=== PATIENT | male | born 1955 | race African-American/Black ===

== ENCOUNTER 2018-03-02 16:09 | Emergency (ER) | payer SELFPAY ==
[~2018-03-02] VITALS: Ht 185.4 cm; Wt 93.0 kg
[2018-03-02 16:20] VITALS: BP 137/77
[2018-03-02 17:34] LABS: HEMATOCRIT 37.7 % (42.0-52.0); HEMOGLOBIN 10.9 G/DL (14.2-18.0); MEAN CORPUSCULAR VOLUME 62 FL (80-99); PLATELET COUNT 515 K/UL (150-450); RED BLOOD COUNT 6.05 M/UL (4.70-6.10); RED CELL DISTRIBUTION WIDTH 17.4 % (11.6-14.8); WHITE BLOOD COUNT 10.4 K/UL (4.8-10.8)
[2018-03-02 17:50] LABS: ANION GAP 12 mmol/L (5-15); BLOOD UREA NITROGEN 19 mg/dL (7-18); CALCIUM 9.8 MG/DL (8.5-10.1); CARBON DIOXIDE 24 MMOL/L (21-32); CHLORIDE 104 MMOL/L (98-107); CREATININE 1.2 MG/DL (0.55-1.30); POTASSIUM 4.1 MMOL/L (3.5-5.1); SODIUM 140 MMOL/L (136-145)
[2018-03-02 17:55] LABS: ALANINE AMINOTRANSFERASE 36 U/L (12-78); ALBUMIN 3.2 G/DL (3.4-5.0); ALBUMIN/GLOBULIN RATIO 0.6 (1.0-2.7); ALKALINE PHOSPHATASE 109 U/L (46-116); ASPARTATE AMINO TRANSFERASE 23 U/L (15-37); BILIRUBIN,TOTAL 0.6 MG/DL (0.2-1.0)
[2018-03-02] MEDS ORDERED: DICYCLOMINE HCL10 MG PO (18:48)
[2018-03-02] MEDS ORDERED: ONDANSETRON ODT4 MG BC (18:48)
[2018-03-02] MEDS ORDERED: RANITIDINE HCL150 MG ORAL (18:48)
[2018-03-02 18:54] VITALS: BP 137/77
--- NOTE | 2018-03-02 20:15 | Emergency Room Report ---
History of Present Illness General Chief Complaint: Gastrointestinal Illness Source: Patient Present Illness HPI 63-year-old male presents ED for evaluation. States for the last few days he's been having epigastric pain with vomiting and diarrhea. Started after he ate some questionable food. Pain is burning, 6 out of 10, epigastric, nonradiating. Denies chest pain or shortness of breath. Notes multiple episodes of vomiting and diarrhea. Denies recent antibiotic use. Denies recent travel. No other aggravating relieving factors. Denies any other associated symptoms Allergies: Coded Allergies: No Known Allergies (Unverified , 03/02/18) Patient History Past Medical History: none Past Surgical History: none Pertinent Family History: none Social History: Denies: smoking, alcohol use, drug use Immunizations: UTD Reviewed Nursing Documentation: PMH: Agreed; PSxH: Agreed Nursing Documentation-PMH Past Medical History: No Stated History Review of Systems All Other Systems: negative except mentioned in HPI Physical Exam Vital Signs Date Time Temp Pulse Resp B/P (MAP) Pulse Ox O2 Delivery O2 Flow Rate FiO2 03/02/18 16:16 97.7 110 22 137/77 99 Room Air Sp02 EP Interpretation: reviewed, normal General Appearance: no apparent distress, alert, GCS 15, non-toxic Head: normocephalic, atraumatic Eyes: bilateral eye normal inspection, bilateral eye PERRL ENT: hearing grossly normal, normal pharynx, no angioedema, normal voice Neck: full range of motion, supple/symm/no masses Respiratory: chest non-tender, lungs clear, normal breath sounds, speaking full sentences Cardiovascular #1: regular rate, rhythm, no edema Cardiovascular #2: 2+ carotid (R), 2+ carotid (L), 2+ radial (R), 2+ radial (L) , 2+ dorsalis pedis (R), 2+ dorsalis pedis (L) Gastrointestinal: normal bowel sounds, non tender, soft, non-distended, no guarding, no rebound Rectal: deferred Genitourinary: normal inspection, no CVA tenderness Musculoskeletal: back normal, gait/station normal, normal range of motion, non- tender Neurologic: alert, oriented x3, responsive, motor strength/tone normal, sensory intact, speech normal Psychiatric: judgement/insight normal, memory normal, mood/affect normal, no suicidal/homicidal ideation Reflexes: 3+ bicep (R), 3+ bicep (L), 3+ tricep (R), 3+ tricep (L), 3+ knee (R) , 3+ knee (L) Skin: normal color, no rash, warm/dry, well hydrated Lymphatic: no adenopathy Medical Decision Making Diagnostic Impression: Primary Impression: Gastroenteritis ER Course Hospital Course 63 yo M presents to ED c/o vomiting, diarrhea differential diagnosis: gastritis, SBO, cholecystits, gastroenteritis Clinical course Patient placed on stretcher. On secured entrance monitor. After initial history and physical I ordered labs, IV fluids, Zofran and pepcid Labs - no leukocytosis, electyrolytes ok, LFTs normal Upon reassessment, patient states pain has improved. findings consistent with gastroenteritis Discussed findings with patient. Safe for discharge and close outpatient follow -up. We'll prescribe bentyl, Zofran, Zantac. I feel this is a highly complex case requiring extensive working including EKG/ Rhythm strip, Xray/CT/US, Blood/urine lab work, repeat exams while in ED, and administration of strong opiates/narcotics for pain control, admission to hospital or close patient follow up. Diagnosis - gastroenteritis Stable and discharged to home with prescriptions for Zantac, zofran, bentyl. Followup with PMD. Return to ED if symptoms recur or worsen Labs Test 03/02/18 17:08 White Blood Count 10.4 K/UL (4.8-10.8) Red Blood Count 6.05 M/UL (4.70-6.10) Hemoglobin 10.9 G/DL (14.2-18.0) Hematocrit 37.7 % (42.0-52.0) Mean Corpuscular Volume 62 FL (80-99) Mean Corpuscular Hemoglobin 17.9 PG (27.0-31.0) Mean Corpuscular Hemoglobin Concent 28.8 G/DL (32.0-36.0) Red Cell Distribution Width 17.4 % (11.6-14.8) Platelet Count 515 K/UL (150-450) Mean Platelet Volume 6.0 FL (6.5-10.1) Neutrophils (%) (Auto) % (45.0-75.0) Lymphocytes (%) (Auto) % (20.0-45.0) Monocytes (%) (Auto) % (1.0-10.0) Eosinophils (%) (Auto) % (0.0-3.0) Basophils (%) (Auto) % (0.0-2.0) Differential Total Cells Counted 100 Neutrophils % (Manual) 77 % (45-75) Lymphocytes % (Manual) 19 % (20-45) Monocytes % (Manual) 4 % (1-10) Eosinophils % (Manual) 0 % (0-3) Basophils % (Manual) 0 % (0-2) Band Neutrophils 0 % (0-8) Platelet Estimate Increased Platelet Morphology Normal Hypochromasia 3+ Anisocytosis 2+ Microcytosis 3+ Ovalocytes 1+ Sodium Level 140 MMOL/L (136-145) Potassium Level 4.1 MMOL/L (3.5-5.1) Chloride Level 104 MMOL/L (98-107) Carbon Dioxide Level 24 MMOL/L (21-32) Anion Gap 12 mmol/L (5-15) Blood Urea Nitrogen 19 mg/dL (7-18) Creatinine 1.2 MG/DL (0.55-1.30) Estimat Glomerular Filtration Rate > 60 mL/min (>60) Glucose Level 93 MG/DL (74-106) Calcium Level 9.8 MG/DL (8.5-10.1) Total Bilirubin 0.6 MG/DL (0.2-1.0) Aspartate Amino Transf (AST/SGOT) 23 U/L (15-37) Alanine Aminotransferase (ALT/SGPT) 36 U/L (12-78) Alkaline Phosphatase 109 U/L (46-116) Total Protein 8.8 G/DL (6.4-8.2) Albumin 3.2 G/DL (3.4-5.0) Globulin 5.6 g/dL Albumin/Globulin Ratio 0.6 (1.0-2.7) Lipase 85 U/L (73-393) Last Vital Signs Date Time Temp Pulse Resp B/P (MAP) Pulse Ox O2 Delivery O2 Flow Rate FiO2 03/02/18 18:54 97.7 76 22 137/77 99 Room Air Status: improved Disposition: HOME, SELF-CARE Condition: Stable Scripts Dicyclomine Hcl* (DICYCLOMINE HCL*) 10 Mg Capsule 10 MG PO QID for 5 Days, CAP Prov: Greg Ferguson MD 03/02/18 Ondansetron Odt* (ZOFRAN ODT*) 4 Mg Tab.rapdis 4 MG BC EVERY 6 HOURS PRN for Nausea & Vomiting, #10 TAB 0 Refills Prov: Greg Ferguson MD 03/02/18 Ranitidine Hcl* (ZANTAC*) 150 Mg Tablet 150 MG ORAL TWICE A DAY, #30 TAB Prov: Greg Ferguson MD 03/02/18 Departure Forms: Return to Work Return to Work Date: Mar 03, 2018 Work Restrictions: None Patient Instructions: Viral Gastroenteritis, Adult, [id number] Greg Ferguson MD Mar 02, 2018 20:14
== END 2018-03-02 18:55 | disposition home or self-care (01) ==
LOC: EMR 18:20
DX: K52.9 Noninfective gastroenteritis and colitis, unspecified (principal)
CPT/HCPCS: 36415; 80053; 83690; 85007; 85025; 96361; 96374; 96375; 99284; J2405; S0028

== ENCOUNTER 2018-06-04 09:47 | Emergency (ER) | payer MEDICAID ==
[~2018-06-04] VITALS: Ht 185.4 cm; Wt 90.3 kg
[~2018-06-04 09:47] MED LIST: DICYCLOMINE HCL10 MG PO; ONDANSETRON ODT4 MG BC; RANITIDINE HCL150 MG ORAL
[2018-06-04] MEDS ORDERED: UNOBMED (10:00)
[2018-06-04 10:03] VITALS: BP 116/35
--- NOTE | 2018-06-04 10:03 | NUR ---
ED Nurse Note: AMBULATED IN TO ER DUE TO ABNORMAL LAB- H&H OF 5.[address] MCCATRY. PT DENIES SOB, DIZZINESS NOR FATIGUE. PT RECENTLY GOT COLOSTOMY SURGERY 2-3MONTHS AGO AFTER DIAGNOSED OF COLON CANCER. PT HAS PORTAL CATH FOR CHEMOTHERPY WHICH WAS SUPPOSE TO BE GIVEN TODAY.
[2018-06-04 10:27] LABS: HEMATOCRIT 22.7 % (42.0-52.0); HEMOGLOBIN 6.3 G/DL (14.2-18.0); MEAN CORPUSCULAR VOLUME 53 FL (80-99); PLATELET COUNT 431 K/UL (150-450); RED BLOOD COUNT 4.29 M/UL (4.70-6.10); RED CELL DISTRIBUTION WIDTH 17.1 % (11.6-14.8); WHITE BLOOD COUNT 7.4 K/UL (4.8-10.8)
--- NOTE | 2018-06-04 10:28 | Emergency Room Report ---
History of Present Illness General Chief Complaint: General Complaint Source: Patient Present Illness HPI 63yo M with h/o colon ca s/p colectomy and colostomy placement, awaiting chemo regimen scheduled to begin tomorrow, sent by Dr. Dennis for transfusion, hgb 5.4 on outpatient labs. Patient denies symptoms of anemia, denies melena or bloody stools, abd pain, n/v. Allergies: Coded Allergies: No Known Allergies (Unverified , 03/02/18) Patient History Past Medical History: see triage record Reviewed Nursing Documentation: PMH: Agreed; PSxH: Agreed Nursing Documentation-PMH Past Medical History: No History, Except For Hx Cancer: Yes - colon CA Review of Systems All Other Systems: negative except mentioned in HPI Physical Exam Vital Signs Date Time Temp Pulse Resp B/P (MAP) Pulse Ox O2 Delivery O2 Flow Rate FiO2 06/04/18 09:54 98.2 76 14 134/68 97 Room Air Sp02 EP Interpretation: reviewed, normal General Appearance: no apparent distress, alert, non-toxic Head: normocephalic Eyes: bilateral eye normal inspection, bilateral eye PERRL, bilateral eye EOMI , bilateral eye conjunctivae pale ENT: normal ENT inspection, hearing grossly normal, normal pharynx, no angioedema, normal voice, moist mucus membranes Neck: normal inspection, full range of motion, supple, supple/symm/no masses Respiratory: chest non-tender, lungs clear, normal breath sounds, chest symmetrical, palpation of chest normal Cardiovascular #1: normal peripheral pulses, regular rate, rhythm, other - R chest port site C/D/I Cardiovascular #2: 2+ radial (R), 2+ radial (L) Gastrointestinal: normal inspection, non tender, soft, no mass, no guarding, no rebound, other - L sided colostomy bag and site C/D/I Rectal: deferred Genitourinary: normal inspection, no CVA tenderness Musculoskeletal: back normal, gait/station normal, normal range of motion, non- tender, no calf tenderness Neurologic: alert, responsive, truss assembler III-XII nml as tested, motor strength/tone normal, sensory intact, speech normal Psychiatric: judgement/insight normal, memory normal, mood/affect normal Skin: normal color, no rash, warm/dry, normal turgor Lymphatic: no adenopathy Medical Decision Making Diagnostic Impression: Primary Impression: Anemia ER Course Patient agreed to receive a blood transfusion, understanding the risks of HIV, hepatitis C, and transfusion incompatibility mismatch, versus the benefits of receiving blood products in the setting of significant low hemoglobin count. Patient will be transferred to Dr. Tran at [facility] ([facility] after receiving his first unit of PRBCs, remains stable. This is his first ever episode of significant anemia so he will need a workup. Rhythm Strip Diag. Results Rhythm Strip Time: 10:28 EP Interpretation: yes Rate: 66 Rhythm: NSR, no PVC's, no ectopy Last Vital Signs Date Time Temp Pulse Resp B/P (MAP) Pulse Ox O2 Delivery O2 Flow Rate FiO2 06/04/18 10:03 75 14 Room Air 06/04/18 10:03 98.2 116/35 100 Disposition: XFER SHT-TRM HOSP Condition: Stable LEIF OLIVO M.D Jun 04, 2018 10:28
--- NOTE | 2018-06-04 10:35 | NUR ---
ED Nurse Note: RISK FACTORS ARE EXPLAINED TO PT BY DR. OLIVO, PT VERBALIZED UNDERSTANDING. BLOOD TRANSFUSION CONSENT OBTAINED.
[2018-06-04 10:37] LABS: ANION GAP 8 mmol/L (5-15); BLOOD UREA NITROGEN 9 mg/dL (7-18); CALCIUM 8.7 MG/DL (8.5-10.1); CARBON DIOXIDE 27 MMOL/L (21-32); CHLORIDE 105 MMOL/L (98-107); CREATININE 1.1 MG/DL (0.55-1.30); POTASSIUM 3.9 MMOL/L (3.5-5.1); SODIUM 140 MMOL/L (136-145)
[2018-06-04 10:40] LABS: ALANINE AMINOTRANSFERASE 21 U/L (12-78); ALBUMIN 3.1 G/DL (3.4-5.0); ALBUMIN/GLOBULIN RATIO 0.7 (1.0-2.7); ALKALINE PHOSPHATASE 101 U/L (46-116); ASPARTATE AMINO TRANSFERASE 17 U/L (15-37); BILIRUBIN,TOTAL 0.3 MG/DL (0.2-1.0)
--- NOTE | 2018-06-04 11:55 | NUR ---
ED Nurse Note: 1U PRBC OBTAINED FROM LAB. WITNESSED BY KAREN HERNANDEZ. VSS. Dwaine/OX4. EDUCATED PT REGARDING S/S OF TRANSFUSION REACTION, PT VERBALIZED UNDERSTANDING. WILL MONITOR FOR THE S/S OF ADVERSE TRANSFUSION REACTION.
[2018-06-04 12:00] VITALS: BP 126/69
--- NOTE | 2018-06-04 12:09 | NUR ---
ED Nurse Note: NO S/S OF ADVERSE TRANSFUSION REACTION OBSERVED. VSS. WILL CONTINUE TO MONITOR.
[2018-06-04 14:00] VITALS: BP 123/67
--- NOTE | 2018-06-04 15:51 | NUR ---
ED Nurse Note: 1 U OF PRBC IS FINISEHD. NO ADVERSE TRANSFUSION REACTION NOTED. SECOND BAG WILL BE CONTINUE ONCE PT TRANSFER TO [facility].
[2018-06-04 15:52] VITALS: BP 120/67
--- NOTE | 2018-06-04 18:29 | NUR ---
TRANSFER TO FLOOR: Patient transferred to [facility][id number] via [facility]. Report given to KAREN Turner. Belongings given to pt. Family and or S/O informed of transfer. VSS. Pt remains stable. Addendum: 06/04/18 at 1832 by [email or web address] OUTSIDE TRANSFER: Patient transferred to [id number] via [facility]. Report given to KAREN Turner. Belongings given to pt. Family and or S/O informed of transfer. VSS. Pt remains stable.
[2018-06-04 18:32] VITALS: BP 130/86
[2018-06-04 18:33] VITALS: BP 130/86
== END 2018-06-04 18:34 | disposition short-term general hospital (02) ==
LOC: EMR 10:40
DX: D64.9 Anemia, unspecified (principal); Z85.038 Personal history of other malignant neoplasm of large intestine; Z90.49 Acquired absence of other specified parts of digestive tract; Z93.3 Colostomy status
CPT/HCPCS: 36415; 80053; 85007; 85025; 85610; 85730; 86850; 86900; 86901; 86920; 96360; 96361; 99285; P9016

== ENCOUNTER 2018-06-07 10:49 | Emergency (ER) | payer MEDICAID ==
[~2018-06-07] VITALS: Ht 185.4 cm; Wt 88.5 kg
[~2018-06-07 10:49] MED LIST changes: +UNOBMED
--- NOTE | 2018-06-07 11:02 | NUR ---
ED Nurse Note: Patient walked into ED c/o a "beeping sound on his pump" patient does have an IV infusion that is located on his right upper chest, states that it is for his cancer, The MD's office wanted patient to come to the ED to have his line flushed and to also put a new dressing. patient is alert and oriented x4, ambulatory with a steady gait, VSS
[2018-06-07 11:07] VITALS: BP 140/82
--- NOTE | 2018-06-07 12:37 | Emergency Room Report ---
History of Present Illness General Chief Complaint: General Complaint Source: Patient Present Illness HPI Patient is 63-year-old male with a history of cancer, on chemotherapy infusion by a port on the anterior chest wall. He finished his infusion this morning. He is requesting to unhook the infusion pump. He has no pain. He has no other complaints. He states he did not want to wait for tomorrow to go to the infusion center and would rather have us dislodge the infusion pump. Allergies: Coded Allergies: No Known Allergies (Unverified , 03/02/18) Patient History Past Medical History: see triage record Pertinent Family History: none Nursing Documentation-PMH Past Medical History: No History, Except For Hx Cancer: Yes - colon CA Review of Systems All Other Systems: negative except mentioned in HPI Physical Exam Vital Signs Date Time Temp Pulse Resp B/P (MAP) Pulse Ox O2 Delivery O2 Flow Rate FiO2 06/07/18 10:56 97.9 89 18 140/82 100 Room Air General Appearance: well appearing, no apparent distress ENT: hearing grossly normal, normal voice Respiratory: no respiratory distress, speaking full sentences Gastrointestinal: normal inspection Skin: other - there is a portacath on the anterior chest wall on the right Medical Decision Making Diagnostic Impression: Primary Impression: Port-A-Cath in place ER Course patient did have the pump removed from the Port-A-Cat and to follow-up with his infusion center at the oncology clinic. Last Vital Signs Date Time Temp Pulse Resp B/P (MAP) Pulse Ox O2 Delivery O2 Flow Rate FiO2 06/07/18 11:07 97.9 72 18 140/82 100 Room Air Disposition: HOME, SELF-CARE Condition: Stable Referrals: [facility]ERR[facility] (PCP) Patient Instructions: Chemotherapy EVERARDO VAUGHN Jun 07, 2018 12:36
[2018-06-07 13:00] VITALS: BP 137/79
--- NOTE | 2018-06-07 13:00 | NUR ---
ER DISCHARGE NOTE: Patient is cleared to be discharged per ERMD, pt is aox4, on room air, with stable vital signs. pt was given dc and prescription instructions, pt was able to verbalize understanding, pt id band removed. pt is able to ambulate with steady gait. pt took all belongings. successfully pulled out patient's port with no complications.
== END 2018-06-07 13:00 | disposition home or self-care (01) ==
LOC: EMR 12:10
DX: Z45.2 Encounter for adjustment and management of vascular access device (principal); C18.9 Malignant neoplasm of colon, unspecified
CPT/HCPCS: 99282

== ENCOUNTER 2019-09-07 17:37 | Emergency (ER) | payer MEDICAID ==
[~2019-09-07] VITALS: Ht 185.4 cm; Wt 85.7 kg
--- NOTE | 2019-09-07 17:48 | NUR ---
ED Nurse Note: Pt ambulated to ED from home d/t RT shoulder pain with 10/10 scale with complains of shortness of breath x 5 days. Pt reports that he has Colon CA and has been going on for chemotherapy. Pt is AOx4, calm and cooperative, arrived with port-a-cath on upper RT chest and colostomy bag on LT lower abdomen. Pt was placed on bed and gown; hooked to materials assistant satting at 100% on RA. Will continue to monitor.
--- NOTE | 2019-09-07 17:50 | NUR ---
ED Nurse Note: Pt ambulated to ED from home d/t RT shoulder pain with 10/10 sfape PT walked in to ED for C/O pain to right shoulder with difficulty to breathe x5 days. Pt is also on chemo for colon CA pt reports feeling nauseous. Addendum: 09/07/19 at 1829 by VIVIANA Amendment undone in EDM - 09/07/19 at 1833 by VIVIANA ED Nurse Note: Pt ambulated to ED from home d/t RT shoulder pain with 10/10 scale with complains of shortness of breath x 5 days. Pt reports that he has chemo CA and has been going for chemotherapy. Pt is AOx4, calm and cooperative, arrived with port-a-cath on upper RT chest and colostomy bag on LT lower abdomen. Pt was placed on bed and gown; hooked to groundwater monitoring technician satting at 100% on RA. Will continue to monitor.
[2019-09-07 18:00] VITALS: BP 151/95
[2019-09-07] MEDS ORDERED: Omnipaque 350 100ml vial INJ PRN ×2 (18:00→18:15)
[2019-09-07] MEDS ORDERED: Ketorolac 30mg Inj IM ONE (18:15)
--- NOTE | 2019-09-07 18:15 | NUR ---
ED Nurse Note: blood with cultures, covid swab collected, sent to labs.
[2019-09-07 18:31] LABS: BASOPHILS % (AUTO) 1.8 % (0.0-2.0); EOSINOPHILS % (AUTO) 4.9 % (0.0-3.0); HEMATOCRIT 43.2 % (42.0-52.0); HEMOGLOBIN 13.3 G/DL (14.2-18.0); LYMPHOCYTES % (AUTO) 28.8 % (20.0-45.0); MEAN CORPUSCULAR VOLUME 88 FL (80-99); MONOCYTES % (AUTO) 3.5 % (1.0-10.0); PLATELET COUNT 151 K/UL (150-450); RED BLOOD COUNT 4.91 M/UL (4.70-6.10); RED CELL DISTRIBUTION WIDTH 16.7 % (11.6-14.8); WHITE BLOOD COUNT 4.2 K/UL (4.8-10.8)
[2019-09-07 18:36] LABS: ANION GAP 12 mmol/L (5-15); BLOOD UREA NITROGEN 13 mg/dL (7-18); CALCIUM 6.3 MG/DL (8.5-10.1); CARBON DIOXIDE 20 MMOL/L (21-32); CHLORIDE 112 MMOL/L (98-107); CREATININE 0.9 MG/DL (0.55-1.30); POTASSIUM 3.1 MMOL/L (3.5-5.1); SODIUM 144 MMOL/L (136-145)
[2019-09-07 18:47] LABS: ALANINE AMINOTRANSFERASE 25 U/L (12-78); ALBUMIN 2.7 G/DL (3.4-5.0); ALKALINE PHOSPHATASE 79 U/L (46-116); ASPARTATE AMINO TRANSFERASE 29 U/L (15-37); BILIRUBIN,TOTAL 0.7 MG/DL (0.2-1.0)
--- NOTE | 2019-09-07 18:49 | Emergency Room Report ---
History of Present Illness General Chief Complaint: General Complaint Source: Patient (Florentino Mcclellan) Present Illness HPI 65-year-old male with history of stage IV colon cancer currently under chemotherapy with last chemotherapy done last here complaining of 3 days of shortness of breath, right-sided chest and shoulder pain at the port site. Also complains of few days of nonbloody diarrhea, denies any generalized abdominal pain, nausea vomiting, cough or congestion, fever and chills. Vital signs are within normal limits. Sitting comfortably with stable vital signs. Rates the pain 10 out of 10. Reports that he lives at home with family. Denies pleuritic chest pain at this time. (Florentino Mcclellan) Allergies: Coded Allergies: No Known Allergies (Unverified , 03/02/18) COVID-19 Screening Contact w/high risk pt: No Recent Travel to affected area: No Experienced COVID-19 symptoms?: Yes COVID-19 symptoms experienced: Shortness of Breath COVID-19 Testing performed RAILROAD SWITCHMAN: No (Florentino Mcclellan) Patient History Past Medical History: see triage record Past Surgical History: none Pertinent Family History: none Immunizations: UTD Reviewed Nursing Documentation: PMH: Agreed; PSxH: Agreed (Florentino Mcclellan) Nursing Documentation-PMH Past Medical History: No History, Except For Hx Cancer: Yes - colon CA (Florentino Mcclellan) Review of Systems All Other Systems: negative except mentioned in HPI (Florentino Mcclellan) Physical Exam Vital Signs Date Time Temp Pulse Resp B/P (MAP) Pulse Ox O2 Delivery O2 Flow Rate FiO2 09/07/19 17:40 97.9 74 16 151/95 (113) 98 Room Air Sp02 EP Interpretation: reviewed, normal General Appearance: no apparent distress, alert, GCS 15, non-toxic Head: normocephalic, atraumatic Eyes: bilateral eye normal inspection, bilateral eye PERRL ENT: hearing grossly normal, normal pharynx, no angioedema, normal voice Neck: full range of motion, supple/symm/no masses Respiratory: chest non-tender, lungs clear, normal breath sounds, no rhonchi, no wheezing, speaking full sentences Cardiovascular #1: regular rate, rhythm, no edema, no murmur Cardiovascular #2: 2+ dorsalis pedis (R), 2+ dorsalis pedis (L) Gastrointestinal: normal bowel sounds, non tender, soft, non-distended, no guarding, no rebound Rectal: deferred Genitourinary: no CVA tenderness Musculoskeletal: back normal, no calf tenderness, other - No drainage noted at port site. Neurologic: alert, motor strength/tone normal, oriented x3, sensory intact, responsive, speech normal Psychiatric: normal inspection, judgement/insight normal Skin: no rash Lymphatic: no adenopathy (Florentino Mcclellan) Medical Decision Making PA Attestation Diagnosis and treatment plans were reviewed and discussed with my supervising physician Dr. Gordillo (Florentino Mcclellan) Diagnostic Impression: Primary Impression: SOB (shortness of breath) Additional Impressions: Fatigue Qualified Codes: R53.83 - Other fatigue Muscle strain ER Course 65-year-old male with history of stage IV colon cancer currently under chemotherapy with last chemotherapy done last here complaining of 3 days of shortness of breath, right-sided chest and shoulder pain at the port site. Also complains of few days of nonbloody diarrhea, denies any generalized abdominal pain, nausea vomiting, cough or congestion, fever and chills. Vital signs are within normal limits. Sitting comfortably with stable vital signs. Rates the pain 10 out of 10. Reports that he lives at home with family. Denies pleuritic chest pain at this time. Ddx considered but are not limited to: PE, [place], Angina, COPD, GERD, Vital signs: are WNL, pt. is afebrile H&PE are most consistent with chest pain ORDERS: Sepsis and chest pain order set, CTA chest with contrast, COVID-19 swab ED INTERVENTIONS: Toradol, morphine, Zofran, NS bolus I signed out the patient to Dr. Gordillo at 7 PM (Florentino Mcclellan) ER Course 64-year-old male presents with shortness of breath, right shoulder pain differential diagnosis includes ACS, pulmonary embolism, chemotherapy related fatigue. Patient most likely with a right shoulder strain. Patient most likely with chemotherapy related fatigue, labs unremarkable, CT scan shows a left kidney that is currently dilated however his renal function is completely normal, counseled patient to follow-up with his primary doctor Dr. Dennis to follow-up renal function, a copy of the CD was given as well as the read. Disposition home with return precautions follow-up with PCP Laboratory Tests Test 09/07/19 18:13 White Blood Count 4.2 K/UL (4.8-10.8) L Red Blood Count 4.91 M/UL (4.70-6.10) Hemoglobin 13.3 G/DL (14.2-18.0) L Hematocrit 43.2 % (42.0-52.0) Mean Corpuscular Volume 88 FL (80-99) Mean Corpuscular Hemoglobin 27.2 PG (27.0-31.0) Mean Corpuscular Hemoglobin Concent 30.9 G/DL (32.0-36.0) L Red Cell Distribution Width 16.7 % (11.6-14.8) H Platelet Count 151 K/UL (150-450) Mean Platelet Volume 8.5 FL (6.5-10.1) Neutrophils (%) (Auto) 61.0 % (45.0-75.0) Lymphocytes (%) (Auto) 28.8 % (20.0-45.0) Monocytes (%) (Auto) 3.5 % (1.0-10.0) Eosinophils (%) (Auto) 4.9 % (0.0-3.0) H Basophils (%) (Auto) 1.8 % (0.0-2.0) Prothrombin Time 10.6 SEC (9.30-11.50) Prothrombin Time INR 1.0 (0.9-1.1) Activated Partial Thromboplast Time 27 SEC (23-33) Sodium Level 144 MMOL/L (136-145) Potassium Level 3.1 MMOL/L (3.5-5.1) L Chloride Level 112 MMOL/L (98-107) H Carbon Dioxide Level 20 MMOL/L (21-32) L Anion Gap 12 mmol/L (5-15) Blood Urea Nitrogen 13 mg/dL (7-18) Creatinine 0.9 MG/DL (0.55-1.30) Estimated Glomerular Filtration Rate > 60 mL/min (>60) Glucose Level 80 MG/DL (74-106) Lactic Acid Level 0.70 mmol/L (0.4-2.0) Calcium Level 6.3 MG/DL (8.5-10.1) L Total Bilirubin 0.7 MG/DL (0.2-1.0) Aspartate Amino Transferase (AST) 29 U/L (15-37) Alanine Aminotransferase (ALT) 25 U/L (12-78) Alkaline Phosphatase 79 U/L (46-116) Troponin I 0.000 ng/mL (0.000-0.056) Pro-B-Type Natriuretic Peptide 7 pg/mL (0-125) Total Protein 5.5 G/DL (6.4-8.2) L Albumin 2.7 G/DL (3.4-5.0) L Globulin 2.8 g/dL Albumin/Globulin Ratio 1.0 (1.0-2.7) (Addy Gordillo MD) EKG Diagnostic Results Rate: normal Rhythm: NSR ST Segments: no acute changes Other Impression No acute ST changes (Florentino Mcclellan) Chest X-Ray Diagnostic Results Chest X-Ray Diagnostic Results : Chest X-Ray Ordered: Yes # of Views/Limited/Complete: 1 View Indication: Chest Pain EP Interpretation: Yes PA Xray: Interpretation reviewed, by supervising MD, and agrees with findings. Interpretation: no consolidation, no effusion, no pneumothorax Impression: No acute disease Electronically Signed by: Florentino Adamson PA-C (Florentino Mcclellan) CT/MRI/US Diagnostic Results CT/MRI/US Diagnostic Results : Impression Final Report EXAM: CT Angiography Chest With Intravenous Contrast CLINICAL HISTORY: PE TECHNIQUE: Axial computed tomographic angiography images of the chest with intravenous contrast. CTDI is 48 mGy and DLP is 236 mGy-cm. One or more of the following dose reduction techniques were used: automated exposure control, adjustment of the mA and/or kV according to patient size, use of iterative reconstruction technique. MIP reconstructed images were created and reviewed. Coronal and sagittal reformatted images were created and reviewed. Axial reformatted images were created and reviewed. COMPARISON: No relevant prior studies available. FINDINGS: Limitations: Evaluation of the study limited due to lack of comparison studies. Pulmonary arteries: No pulmonary embolism. Aorta: No acute findings. No thoracic aortic aneurysm. Lungs: Numerous bilateral lobulated pulmonary nodules concerning for metastatic pulmonary disease, largest in the right upper lobe measuring 2.6 x 1.6 cm. Pleural space: Unremarkable. No significant effusion. No pneumothorax. Heart: Unremarkable. No cardiomegaly. No significant pericardial effusion. No evidence of RV dysfunction. Bones/joints: No acute intrathoracic process identified to account for patient presentation. No dislocation. Soft tissues: Unremarkable. Lymph nodes: Right hilar metastatic 2.9 x 1.6 cm node and right infrahilar metastatic 3.2 x 1.5 cm lymph node. Spleen: Ill-defined splenic 4.47 m likely metastatic lesion. Multiple hepatic likely metastatic masses largest measuring 2.5 cm in the right hepatic lobe limited in evaluation due to phase of contrast enhancement. Kidneys and ureters: Severely atrophic right kidney. Left renal enlargement with partially seen possible collecting system dilatation versus parapelvic cysts, correlate with prior imaging studies and laboratory evaluation as obstructive process cannot be definitively excluded and in a patient with a solitary functional left kidney this could put the patient at risk for acute renal failure. Tubes, lines and devices: Right IJ approach infusion port. Other findings: Upper left abdominal stoma. IMPRESSION: 1. No pulmonary embolism. 2. No acute intrathoracic process identified to account for patient presentation. 3. Solitary functional enlarged left kidney with partially imaged possible collecting system dilatation potentially representing nonvisualized obstruction versus parapelvic cysts, correlate with laboratory evaluation and prior studies as obstructive uropathy process could put this patient in acute renal failure. Consider renal ultrasound or CT abdomen and pelvis with IV contrast if there is further concern. 4. Metastatic disease to the lungs, right hilar nodes, liver, and spleen as above. No comparison study available to evaluate for interval change. Reported history of colon cancer. 5. Right IJ approach infusion port. 6. Upper left abdominal stoma. Radiologist: Adelfo Vargas MD Electronically Signed: 09/07/19 19:27 Study ready at 19:14 and initial results transmitted at 19:27 Communications: Clear Time Type Notes 09/07/19 19:19 Call Doctor Regarding Other, called Dr. Noonan (Addy Gordillo MD) Last Vital Signs Date Time Temp Pulse Resp B/P (MAP) Pulse Ox O2 Delivery O2 Flow Rate FiO2 09/07/19 18:00 97.9 87 16 151/95 98 Room Air (Florentino Mcclellan) Disposition: HOME, SELF-CARE Condition: Stable Scripts Lidocaine Patch* (Lidoderm Patch*) 1 Each Adh..patch 1 PATCH TOPIC DAILY, #7 PATCH 0 Refills Patch(es) may remain in place for up to 12 hours in any 24-hour period. Prov: Addy Gordillo MD 09/07/19 Ibuprofen* (MOTRIN*) 600 Mg Tablet 600 MG ORAL Q8H PRN for FOR PAIN, #30 TAB 0 Refills Prov: Addy Gordillo MD 09/07/19 Referrals: [facility],REFERRING (PCP) Patient Instructions: Shoulder Pain, [id number] Additional Instructions: The patient was provided with discharge instructions, notified to follow-up with a primary care doctor and or specialist in the next 24-48 hours, and to return to the ED if they have worsening of their symptoms. Please note that this report is being documented using Blackfoot technology. This can lead to erroneous entry secondary to incorrect interpretation by the dictating instrument. Please follow-up with Dr. Dennis in regards to follow-up your renal function, you have a solitary functioning left kidney it is currently dilated however your renal function is completely normal at this time. Florentino Mcclellan September 07, 2019 18:49 Addy Gordillo MD September 07, 2019 19:33
--- NOTE | 2019-09-07 18:54 | NUR ---
ED Nurse Note: pt went to CT via wheelchair accompanied by tech.
[2019-09-07] MEDS ORDERED: HYDROmorphone 1mg/ml Carpuject IVP ONE (19:00)
--- NOTE | 2019-09-07 19:20 | NUR ---
ED Nurse Note: Pt returned from CT in stable condition. All medications administered, pt tolerated well no ss of distress noted. VSS will continue to monitor.
--- NOTE | 2019-09-07 19:28 | Diagnostic Imaging Report ---
EXAM: CT Angiography Chest With Intravenous Contrast CLINICAL HISTORY: PE TECHNIQUE: Axial computed tomographic angiography images of the chest with intravenous contrast. CTDI is 48 mGy and DLP is 236 mGy-cm. One or more of the following dose reduction techniques were used: automated exposure control, adjustment of the mA and/or kV according to patient size, use of iterative reconstruction technique. MIP reconstructed images were created and reviewed. Coronal and sagittal reformatted images were created and reviewed. Axial reformatted images were created and reviewed. COMPARISON: No relevant prior studies available. FINDINGS: Limitations: Evaluation of the study limited due to lack of comparison studies. Pulmonary arteries: No pulmonary embolism. Aorta: No acute findings. No thoracic aortic aneurysm. Lungs: Numerous bilateral lobulated pulmonary nodules concerning for metastatic pulmonary disease, largest in the right upper lobe measuring 2. 6 x 1.6 cm. Pleural space: Unremarkable. No significant effusion. No pneumothorax. Heart: Unremarkable. No cardiomegaly. No significant pericardial effusion. No evidence of RV dysfunction. Bones/joints: No acute intrathoracic process identified to account for patient presentation. No dislocation. Soft tissues: Unremarkable. Lymph nodes: Right hilar metastatic 2.9 x 1.6 cm node and right infrahilar metastatic 3.2 x 1.5 cm lymph node. Spleen: Ill-defined splenic 4.47 m likely metastatic lesion. Multiple hepatic likely metastatic masses largest measuring 2.5 cm in the right hepatic lobe limited in evaluation due to phase of contrast enhancement. Kidneys and ureters: Severely atrophic right kidney. Left renal enlargement with partially seen possible collecting system dilatation versus parapelvic cysts, correlate with prior imaging studies and laboratory evaluation as obstructive process cannot be definitively excluded and in a patient with a solitary functional left kidney this could put the patient at risk for acute renal failure. Tubes, lines and devices: Right IJ approach infusion port. Other findings: Upper left abdominal stoma. IMPRESSION: 1. No pulmonary embolism. 2. No acute intrathoracic process identified to account for patient presentation. 3. Solitary functional enlarged left kidney with partially imaged possible collecting system dilatation potentially representing nonvisualized obstruction versus parapelvic cysts, correlate with laboratory evaluation and prior studies as obstructive uropathy process could put this patient in acute renal failure. Consider renal ultrasound or CT abdomen and pelvis with IV contrast if there is further concern. 4. Metastatic disease to the lungs, right hilar nodes, liver, and spleen as above. No comparison study available to evaluate for interval change. Reported history of colon cancer. 5. Right IJ approach infusion port. 6. Upper left abdominal stoma. <MYCVCSECTION> Communications: 09/07/19 19:19 Call Doctor Regarding Other, called Dr. Noonan
[2019-09-07] MEDS ORDERED: LIDODERM700 M1 TOPIC (19:33)
[2019-09-07] MEDS ORDERED: IBUPROFEN600 M1 ORAL (19:33)
--- NOTE | 2019-09-07 19:45 | NUR ---
ED Nurse Note: ERMD at bedside
[2019-09-07 19:54] VITALS: BP 125/81
--- NOTE | 2019-09-07 19:54 | NUR ---
ER DISCHARGE NOTE: Patient is cleared to be discharged home per ERMD, pt is aox4, 100% on room air, with stable vital signs. pt was given dc and prescription instructions, pt was able to verbalize understanding, pt id band and iv site removed without complications. pt is able to ambulate with steady gait. pt took all belongings.
--- NOTE | 2019-09-08 14:34 | Diagnostic Imaging Report ---
Indication: Chest pain and shortness of breath Technique: One view of the chest Comparison: none Findings: Nodule or opacities are seen at the left lung base and the right perihilar region. There is suggestion of right hilar mass or adenopathy. There is also questionably a vague right midlung opacity. There is a right chest port catheter in place. The heart size is normal. No infiltrates. Linear atelectasis is seen at the right lung base. Impression: Negative for infiltrate Bilateral nodular opacities and right hilar mass. Given the presence of a port catheter, suspect on the basis of metastatic disease. Correlate with clinical history and findings.
== END 2019-09-07 19:54 | disposition home or self-care (01) ==
LOC: EMR 17:52
DX: R06.02 Shortness of breath (principal); R53.83 Other fatigue; T14.8XXA Other injury of unspecified body region, initial encounter; X58.XXXA Exposure to other specified factors, initial encounter; Y92.9 Unspecified place or not applicable; Z85.038 Personal history of other malignant neoplasm of large intestine; R19.7 Diarrhea, unspecified; R07.9 Chest pain, unspecified; M25.511 Pain in right shoulder
CPT/HCPCS: 36415; 71045; 71275; 80053; 83605; 83880; 84484; 85025; 85610; 85730; 87040; 87635; 93005; 96361; 96372; 96374; 96375; J1170; J1885; J2405; J7030; Q9967; Z7502; 99284; J8499

== ENCOUNTER 2019-12-24 06:22 | Emergency (ER) | payer MEDICAID ==
[~2019-12-24] VITALS: Ht 185.4 cm; Wt 87.1 kg
[~2019-12-24 06:22] MED LIST changes: +IBUPROFEN600 M1 ORAL; +LIDODERM700 M1 TOPIC
[2019-12-24 06:30] VITALS: BP 157/93
[2019-12-24] MEDS ORDERED: Morphine Sulfate 2mg/ml Inj(IV/IM USE ONLY) IM ONE (06:45)
--- NOTE | 2019-12-24 06:52 | Emergency Room Report ---
History of Present Illness General Chief Complaint: Pain Source: Patient Present Illness HPI Patient is a 64-year-old male presents for increased right-sided shoulder pain. Reports having prior history of metastatic cancer. Had previous chemotherapy. CT imaging 2 months ago showed metastases to his liver as well as lymph nodes in his chest. Denies any vomiting or abdominal pain. Denies any change in pain with movement. Pain is worsened by position. Denies any recent bleeding. Allergies: Coded Allergies: No Known Allergies (Unverified , 03/02/18) COVID-19 Screening Contact w/high risk pt: No Recent Travel to affected area: No Experienced COVID-19 symptoms?: No COVID-19 symptoms experienced: Shortness of Breath COVID-19 Testing performed PROFESSOR OF PATHOLOGY: No Patient History Past Medical History: see triage record Reviewed Nursing Documentation: PMH: Agreed; PSxH: Agreed Nursing Documentation-PMH Past Medical History: No History, Except For Hx Hypertension: Yes Hx Cancer: Yes - colon CA Review of Systems All Other Systems: negative except mentioned in HPI Physical Exam Vital Signs Date Time Temp Pulse Resp B/P (MAP) Pulse Ox O2 Delivery O2 Flow Rate FiO2 12/24/19 06:28 98.1 57 22 165/103 (123) 95 Room Air Sp02 EP Interpretation: reviewed, normal General Appearance: normal inspection, well appearing, no apparent distress, alert, GCS 15, Chronically Ill Head: atraumatic ENT: normal ENT inspection, hearing grossly normal, normal voice Neck: normal inspection, full range of motion, supple, no bony tend Respiratory: normal inspection, lungs clear, normal breath sounds, no respiratory distress, no retraction, no wheezing Cardiovascular #1: regular rate, rhythm, no edema Gastrointestinal: normal inspection, normal bowel sounds, non tender, soft, no guarding, no hernia Genitourinary: no CVA tenderness Musculoskeletal: normal inspection, back normal, normal range of motion Neurologic: alert, motor strength/tone normal, yeast supervisor III-XII nml as tested, responsive, speech normal, normal inspection Psychiatric: normal inspection, judgement/insight normal, mood/affect normal Skin: no rash Medical Decision Making Diagnostic Impression: Primary Impression: Lung metastases ER Course Patient presented for right-sided shoulder pain. Differential diagnosis include was not limited to bursitis, cancer pain, metastases, among others. Patient has known history of metastatic cancer. There is also some tumor noted to the posterior right thorax on previous CT imaging. Near the pleural border. Metastatic disease to the lungs right hilar nodes and spleen were noted in the past. Patient appears to have had previous visit for similar type pain.'s appears to be cancer related. Patient was given morphine for pain.Patient declined CT imaging imaging studies as well as laboratory testing and states he had recent labs done with his physician. Patient was given pain medications. Patient's pain appears to be related to metastatic cancer and so patient was given narcotic pain medications in the emergency department. He was given prescription for further medications for pain and advised to follow-up with his oncologist for further attempts at pain control. He declined chest x-ray and hospitalization. The patient is advised to follow up with primary care doctor in 1-2 days. Patient is advised to return if any worsening condition or if any changes in status that are concerning. This report is dictated with [employer] skid machine operator software which may occasionally lead to discrepancies related to use of this software. Last Vital Signs Date Time Temp Pulse Resp B/P (MAP) Pulse Ox O2 Delivery O2 Flow Rate FiO2 12/24/19 06:28 98.1 57 22 165/103 (123) 95 Room Air Status: improved Disposition: HOME, SELF-CARE Condition: Stable Scripts Hydrocodone Bit/Acetaminophen 10-325* (NORCO 10-325*) 1 Each Tablet 1 TAB ORAL Q6H PRN for For Pain, #10 TAB 0 Refills PRN PAIN Prov: Jose Jackson MD 12/24/19 Referrals: [facility]/,REFERRING (PCP) Jose Jackson MD Dec 24, 2019 06:52
[2019-12-24] MEDS ORDERED: NORCO 10-325 T1 EACH ORAL (07:01)
[2019-12-24 07:07] VITALS: BP 144/89
[2019-12-24 08:00] VITALS: BP 144/89
== END 2019-12-24 08:00 | disposition home or self-care (01) ==
LOC: EMR 06:37
DX: C78.01 Secondary malignant neoplasm of right lung (principal); I10 Essential (primary) hypertension; Z85.038 Personal history of other malignant neoplasm of large intestine
CPT/HCPCS: 96372; J2270; Z7502; 99283

== ENCOUNTER 2020-04-27 17:07 | Inpatient (IN) | payer MEDICAID ==
[~2020-04-27] VITALS: Ht 185.4 cm; Wt 86.2 kg
[~2020-04-27 17:07] MED LIST changes: +NORCO 10-325 T1 EACH ORAL; +TRAMADOL HCL50 MG ORAL; +TYLENOL325 MG ORAL
[2020-04-27 17:15] VITALS: BP 137/86
--- NOTE | 2020-04-27 17:15 | NUR ---
ED Nurse Note: Pt walked in to ED from home c/o abnormal labs (low hgb 6.6). Pt was sent by his PCP. Pt also c/o body pain and fatigue. Has hx of colon ca and anemia. Presented with portacath on right upper chest and a colostomy bag. Placed on monitor car operator. ERMD at bedside.
[2020-04-27] MEDS ORDERED: Omnipaque-300 100ml vial INJ PRN ×2 (18:00→19:45)
[2020-04-27] MEDS ORDERED: Morphine Sulfate 4mg/ml Inj (IV USE ONLY) IVP ONE ×2 (18:00→19:15)
--- NOTE | 2020-04-27 18:00 | NUR ---
ED Nurse Note: Blood, urine and covid swab sent to lab.
[2020-04-27 18:22] LABS: HEMATOCRIT 23.8 % (42.0-52.0); MEAN CORPUSCULAR VOLUME 70 FL (80-99); PLATELET COUNT 319 K/UL (150-450); RED BLOOD COUNT 3.42 M/UL (4.70-6.10); RED CELL DISTRIBUTION WIDTH 21.3 % (11.6-14.8); WHITE BLOOD COUNT 9.9 K/UL (4.8-10.8)
[2020-04-27 18:24] LABS: HEMOGLOBIN 6.8 G/DL (14.2-18.0)
[2020-04-27 18:33] LABS: ANION GAP 11 mmol/L (5-15); BLOOD UREA NITROGEN 17 mg/dL (7-18); CALCIUM 9.2 MG/DL (8.5-10.1); CARBON DIOXIDE 23 MMOL/L (21-32); CHLORIDE 105 MMOL/L (98-107); CREATININE 1.3 MG/DL (0.55-1.30); SODIUM 138 MMOL/L (136-145)
--- NOTE | 2020-04-27 18:37 | Emergency Room Report ---
History of Present Illness General Chief Complaint: Abnormal Labs Source: Patient Present Illness HPI 65-year-old male history of colostomy history of colon cancer, presents with anemia fatigue x2 weeks, patient noticed some black stools in his colostomy bag, no chest pain no shortness of breath, no known aggravating relieving factors severity is moderate, constant patient presents for evaluation and treatment Allergies: Coded Allergies: No Known Allergies (Unverified , 03/02/18) COVID-19 Screening Contact w/high risk pt: No Recent Travel to affected area: No Experienced COVID-19 symptoms?: No COVID-19 symptoms experienced: Shortness of Breath COVID-19 Testing performed 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 COVID-19 Screening: Negative COVID-19 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 Patient History Past Medical History: see triage record Reviewed Nursing Documentation: PMH: Agreed; PSxH: Agreed Nursing Documentation-PMH Past Medical History: No History, Except For Hx Hypertension: Yes - anemia Hx Cancer: Yes - colon CA Review of Systems All Other Systems: negative except mentioned in HPI Physical Exam Vital Signs Date Time Temp Pulse Resp B/P (MAP) Pulse Ox O2 Delivery O2 Flow Rate FiO2 04/27/20 17:13 98.1 99 18 137/86 (103) 95 Room Air Sp02 EP Interpretation: reviewed, normal General Appearance: well appearing, no apparent distress, alert Head: normocephalic, atraumatic Eyes: bilateral eye PERRL, bilateral eye EOMI, bilateral eye conjunctivae pale ENT: uvula midline, moist mucus membranes Neck: supple, thyroid normal, supple/symm/no masses Respiratory: lungs clear, no respiratory distress, no retraction, no accessory muscle use Cardiovascular #1: normal peripheral pulses, regular rate, rhythm, no edema, no gallop, no murmur Gastrointestinal: non tender, soft, no guarding, no rebound Musculoskeletal: normal inspection Neurologic: alert, oriented x3 Psychiatric: mood/affect normal Skin: no rash, warm/dry Procedures Critical Care Time Critical Care Time Given the critical condition in which the patient arrived, the patient was immediately assessed by myself and the nurse, and cardiac monitoring initiated due to the potential for rapid decompensation of the patient's clinical condition. During the course of the patient's stay, I spent a considerable amount of time at the bedside performing serial re-evaluations of the patient's hemodynamic and clinical status because of the recognized potential threat to life or limb in this condition. I then had a chance to review not only all of the available current laboratory and radiographic studies obtained today, but I also reviewed old records available to me at the time. Additionally, any ancillary information available including carbonation tester records were reviewed. Sequential vital signs were obtained. Critical Care time of 31 minutes was performed exclusive of billable procedures. With symptomatic anemia patient is at risk of high-output failure if he does not have his hemoglobin addressed expeditiously, patient will be transfused 1 unit Medical Decision Making Diagnostic Impression: Primary Impression: Symptomatic anemia ER Course 65-year-old male history of metastatic colon cancer presents with symptomatic anemia Patient given blood Plan for admission to [facility] under Dr. Borges CT/MRI/US Diagnostic Results CT/MRI/US Diagnostic Results : Impression Procedure: CT Chest w Contrast EXAM: CT Chest With Intravenous Contrast CLINICAL HISTORY: Right shoulder pain. History of colon cancer. Evaluate for lung mass. TECHNIQUE: Axial computed tomography images of the chest with intravenous contrast. CTDI is 7.0 mGy and DLP is 314.7 mGy-cm. One or more of the following dose reduction techniques were used: automated exposure control, adjustment of the mA and/or kV according to patient size, use of iterative reconstruction technique. COMPARISON: 09/07/2019. FINDINGS: Lungs: Evaluation of the pulmonary parenchyma reveals extensive and diffuse metastatic disease to the lungs. Airway is patent. Pleural space: Unremarkable. No pneumothorax. No significant effusion. Heart: Heart is normal in size. No significant pericardial effusion. Thyroid: Thyroid gland is unremarkable. Bones/joints: The clavicles are unremarkable. Visualized right shoulder joint is unremarkable. The ribs are likewise unremarkable. Alignment of the thoracic spine is unremarkable. The sternum is unremarkable. No acute fracture. Soft tissues: Unremarkable. Vasculature: Thoracic aorta is unremarkable. Central pulmonary arteries are within normal limits. No thoracic aortic aneurysm. Lymph nodes: Unremarkable. No enlarged lymph nodes. Liver: Extensive and diffuse metastatic disease to the liver and the spleen. Other findings: The metastatic disease has worsened significantly and progressive 09/07/2019. IMPRESSION: Extensive and diffuse metastatic disease to the lungs which has worsened and progressed since 09/07/2019. Dictated By: Rafa Jameson M.D. Electronically Signed By:Rafa Jameson M.D. Signed Date/Time04/27/202026 CC: Addy Gordillo MD Procedure: CT Abdomen Pelvis w/Contrast EXAM: CT Abdomen and Pelvis With Intravenous Contrast CLINICAL HISTORY: PAIN TECHNIQUE: Axial computed tomography images of the abdomen and pelvis with intravenous contrast. CTDI is 6.3 mGy and DLP is 355.2 mGy-cm. One or more of the following dose reduction techniques were used: automated exposure control, adjustment of the mA and/or kV according to patient size, use of iterative reconstruction technique. COMPARISON: No previous study. FINDINGS: Lung bases: Mass lesions are noted at the lung bases largest of which is at the right lung base measuring 3 x 4.2 cm compatible with metastatic disease. Minimal subsegmental atelectasis or scarring posteriorly at the lung bases. Heart: Heart is normal in size. Mediastinum: Small hiatal hernia. ABDOMEN: Liver: Diffuse fatty infiltration of the liver. Extensive metastatic disease to the liver and the spleen. Gallbladder and bile ducts: See below. Pancreas: See below. Spleen: See above. Adrenals: The adrenal glands, the head, body, tail of the pancreas and the gallbladder are unremarkable. Kidneys and ureters: Atrophic are right kidney. Compensatory hypertrophy of the left kidney. Parapelvic left renal cysts. No follow- up is advised. No hydronephrosis. Stomach and bowel: Midline are right upper quadrant ostomy site is noted. Minimal ingested material in the stomach. Moderate quantity of stool throughout the colon. No obstruction. No mucosal thickening. PELVIS: Appendix: Appendix is seen on coronal image 21 and is unremarkable. Bladder: The bladder is unremarkable. Reproductive: The prostate gland measures 5.3 x 6 cm. ABDOMEN and PELVIS: Intraperitoneal space: Unremarkable. No free air. No significant fluid collection. Bones/joints: Mild degenerative disc disease of the visualized spine. Moderate osteoarthritic changes about the sacroiliac joints. Minimal grade 1 anterolisthesis of L4 upon L5 vertebral body. No spondylolysis. No acute fracture. No dislocation. Soft tissues: Ischiorectal fat is clean. Vasculature: Atherosclerotic disease of the abdominal aorta without change in caliber. Flow is demonstrated within the celiac, SMA, the renal arteries, and MARILU. No abdominal aortic aneurysm. Lymph nodes: No retroperitoneal lymphadenopathy. No pelvic or inguinal lymphadenopathy. IMPRESSION: 1. Extensive metastatic disease to the lung, the liver, and the spleen. 2. Atrophic right kidney. 3. The gallbladder is unremarkable. 4. Appendix is unremarkable. 5. Moderate quantity of stool throughout the colon. 6. Parapelvic left renal cysts which requires no follow-up. 7. Mild enlargement of the prostate gland. 8. PET imaging may provide additional information and should be considered for follow-up. Dictated By: Rafa Jameson M.D. Electronically Signed By:Rafa Jameson M.D. Signed Date/Time04/27/20 192 CC: Addy Gordillo MD Last Vital Signs Date Time Temp Pulse Resp B/P (MAP) Pulse Ox O2 Delivery O2 Flow Rate FiO2 04/27/20 17:15 98.1 99 18 137/86 95 Room Air Disposition: ADMITTED INPATIENT Condition: Critical Referrals: [facility]ERR[facility] (PCP) Addy Gordillo MD Apr 27, 2020 18:37
[2020-04-27 18:38] LABS: ALANINE AMINOTRANSFERASE 47 U/L (12-78); ALBUMIN 2.8 G/DL (3.4-5.0); ALBUMIN/GLOBULIN RATIO 0.6 (1.0-2.7); ALKALINE PHOSPHATASE 254 U/L (46-116); ASPARTATE AMINO TRANSFERASE 102 U/L (15-37); BILIRUBIN,TOTAL 0.5 MG/DL (0.2-1.0)
--- NOTE | 2020-04-27 18:59 | NUR ---
ED Nurse Note: Pt was taken to CT via wc, not in any distress.
--- NOTE | 2020-04-27 19:09 | NUR ---
HAND-OFF: Report given to Susie JONES.
--- NOTE | 2020-04-27 19:20 | Diagnostic Imaging Report ---
EXAM: CT Abdomen and Pelvis With Intravenous Contrast CLINICAL HISTORY: PAIN TECHNIQUE: Axial computed tomography images of the abdomen and pelvis with intravenous contrast. CTDI is 6.3 mGy and DLP is 355.2 mGy-cm. One or more of the following dose reduction techniques were used: automated exposure control, adjustment of the mA and/or kV according to patient size, use of iterative reconstruction technique. COMPARISON: No previous study. FINDINGS: Lung bases: Mass lesions are noted at the lung bases largest of which is at the right lung base measuring 3 x 4.2 cm compatible with metastatic disease. Minimal subsegmental atelectasis or scarring posteriorly at the lung bases. Heart: Heart is normal in size. Mediastinum: Small hiatal hernia. ABDOMEN: Liver: Diffuse fatty infiltration of the liver. Extensive metastatic disease to the liver and the spleen. Gallbladder and bile ducts: See below. Pancreas: See below. Spleen: See above. Adrenals: The adrenal glands, the head, body, tail of the pancreas and the gallbladder are unremarkable. Kidneys and ureters: Atrophic are right kidney. Compensatory hypertrophy of the left kidney. Parapelvic left renal cysts. No follow- up is advised. No hydronephrosis. Stomach and bowel: Midline are right upper quadrant ostomy site is noted. Minimal ingested material in the stomach. Moderate quantity of stool throughout the colon. No obstruction. No mucosal thickening. PELVIS: Appendix: Appendix is seen on coronal image 21 and is unremarkable. Bladder: The bladder is unremarkable. Reproductive: The prostate gland measures 5.3 x 6 cm. ABDOMEN and PELVIS: Intraperitoneal space: Unremarkable. No free air. No significant fluid collection. Bones/joints: Mild degenerative disc disease of the visualized spine. Moderate osteoarthritic changes about the sacroiliac joints. Minimal grade 1 anterolisthesis of L4 upon L5 vertebral body. No spondylolysis. No acute fracture. No dislocation. Soft tissues: Ischiorectal fat is clean. Vasculature: Atherosclerotic disease of the abdominal aorta without change in caliber. Flow is demonstrated within the celiac, SMA, the renal arteries, and MARILU. No abdominal aortic aneurysm. Lymph nodes: No retroperitoneal lymphadenopathy. No pelvic or inguinal lymphadenopathy. IMPRESSION: 1. Extensive metastatic disease to the lung, the liver, and the spleen. 2. Atrophic right kidney. 3. The gallbladder is unremarkable. 4. Appendix is unremarkable. 5. Moderate quantity of stool throughout the colon. 6. Parapelvic left renal cysts which requires no follow-up. 7. Mild enlargement of the prostate gland. 8. PET imaging may provide additional information and should be considered for follow-up.
--- NOTE | 2020-04-27 19:25 | NUR ---
ED Nurse Note: Recived care from [facility]
[2020-04-27 20:15] VITALS: BP 158/91
[2020-04-27 20:20] VITALS: BP 145/78
--- NOTE | 2020-04-27 20:28 | Diagnostic Imaging Report ---
EXAM: CT Chest With Intravenous Contrast CLINICAL HISTORY: Right shoulder pain. History of colon cancer. Evaluate for lung mass. TECHNIQUE: Axial computed tomography images of the chest with intravenous contrast. CTDI is 7.0 mGy and DLP is 314.7 mGy-cm. One or more of the following dose reduction techniques were used: automated exposure control, adjustment of the mA and/or kV according to patient size, use of iterative reconstruction technique. COMPARISON: 09/07/2019. FINDINGS: Lungs: Evaluation of the pulmonary parenchyma reveals extensive and diffuse metastatic disease to the lungs. Airway is patent. Pleural space: Unremarkable. No pneumothorax. No significant effusion. Heart: Heart is normal in size. No significant pericardial effusion. Thyroid: Thyroid gland is unremarkable. Bones/joints: The clavicles are unremarkable. Visualized right shoulder joint is unremarkable. The ribs are likewise unremarkable. Alignment of the thoracic spine is unremarkable. The sternum is unremarkable. No acute fracture. Soft tissues: Unremarkable. Vasculature: Thoracic aorta is unremarkable. Central pulmonary arteries are within normal limits. No thoracic aortic aneurysm. Lymph nodes: Unremarkable. No enlarged lymph nodes. Liver: Extensive and diffuse metastatic disease to the liver and the spleen. Other findings: The metastatic disease has worsened significantly and progressive 09/07/2019. IMPRESSION: Extensive and diffuse metastatic disease to the lungs which has worsened and progressed since 09/07/2019.
[2020-04-27 20:35] VITALS: BP 133/78
--- NOTE | 2020-04-27 20:55 | NUR ---
ED Nurse Note: Pt is resting comfortably, breathing is even and unlabored, vitals are stable on RA. Blood products are being administered as ordered. 2 RN verification done at bedside. Vitals done per hospital policy.
--- NOTE | 2020-04-27 21:55 | History & Physical ---
History and Physical History & Physicial job # Michael Borges MD Apr 27, 2020 21:55
--- NOTE | 2020-04-27 22:00 | NUR ---
ED Nurse Note: Report given to KAREN Bryan in Med surg
--- NOTE | 2020-04-27 22:02 | NUR ---
NURSE NOTES: Received telephone report from KAREN Art (ED). Pt will be transported soon. Room & bed is ready in 309-2. Per Kaelyn RN, will do med-recon before pt comes up.
--- NOTE | 2020-04-27 22:05 | NUR ---
ED Nurse Note: pt states he was recently prescribed new chemo tablet medication, however pt has not filled out the medication and does not know what medication. Asked if family might be able to get info for medication, but pt stated they would not be able to.
[2020-04-27] MEDS ORDERED: AMLODIPINE BESYL5 MG ORAL (22:08)
[2020-04-27 22:15] VITALS: BP 145/83
--- NOTE | 2020-04-27 22:15 | NUR ---
TRANSFER TO FLOOR: Patient transferred to [facility] via gurney accompanied by RN as ordered, per EDMD . Report given to KAREN Blanco. Belongings and admission packet given to [facility] staff.
--- NOTE | 2020-04-27 22:15 | NUR ---
NURSE NOTES: Received pt from ED. Pt in bed, a&ox4, in room air. No s/s of acute distress & c/o 8/ B/L shoulder pain. Pt belongings signed & accounted for. Skin assessment done; skin intact. Oriented pt to hospital facility. Call light within reach. Right subclavian portacath intact with 1st unit (1 of 2) of PRBC infusing from ED @ 150ml/hr. Colostomy bag appliance noted & intact. Dr. Borges at bedside with pt. Received verbal admission orders from Dr. Borges; will carry out. Will give pt pain med PRN & sleeping pill accordingly per hospital protocol once pharmacy verifies meds.
[2020-04-27] MEDS ORDERED: traMADol 50mg tab ORAL PRN (22:30)
[2020-04-27] MEDS: HYDROcodone/Acetamin 5/325 tab ORAL PRN (22:41)
--- NOTE | 2020-04-27 22:51 | NUR ---
NURSE NOTES: Per pt, colostomy bag was just changed last night.
--- NOTE | 2020-04-27 23:00 | NUR ---
NURSE NOTES: 1st unit of PRBC done infusing. VSS. Pt had no adverse reaction. Will cook pickled meat 2nd unit soon.
--- NOTE | 2020-04-27 23:50 | NUR ---
NURSE NOTES: 2nd unit of PRBc started. VSS. Will continue to monitor pt for 15mins for any adverse reactions.
[2020-04-28] VITALS: BP 130/74
--- NOTE | 2020-04-28 02:10 | NUR ---
NURSE NOTES: 2nd unit of PRBC done. VS WNL. No reaction noted.
[2020-04-28 04:00] VITALS: BP 128/75
[2020-04-28 06:42] LABS: EOSINOPHILS % (AUTO) 5.2 % (0.0-3.0); HEMATOCRIT 30.1 % (42.0-52.0); HEMOGLOBIN 9.1 G/DL (14.2-18.0); LYMPHOCYTES % (AUTO) 12.2 % (20.0-45.0); MEAN CORPUSCULAR VOLUME 73 FL (80-99); MONOCYTES % (AUTO) 10.9 % (1.0-10.0); NEUTROPHILS % (AUTO) 70.8 % (45.0-75.0); PLATELET COUNT 290 K/UL (150-450); RED BLOOD COUNT 4.15 M/UL (4.70-6.10); RED CELL DISTRIBUTION WIDTH 21.3 % (11.6-14.8); WHITE BLOOD COUNT 10.9 K/UL (4.8-10.8)
--- NOTE | 2020-04-28 06:49 | NUR ---
NURSE HAND-OFF: Important Events on Shift: new admit. S/p 2 units PRBC blood transfusion. Able to draw blood from Port-a-cath but after 1 red tube there's no more blood return. Flush port-a-cath twice (flushes easily) at different times but no blood return. Colostomy bag emptied by pt twice & bag changed by pt once last night. Patient Status: stable Diet: regular Pending Orders: Pending Results/Labs: Pending MD notification: Latest Vital Signs: Temperature 97.9 , Pulse 80 , B/P 128 /75 , Respiratory Rate 16 , O2 SAT 98 , Room Air, O2 Flow Rate . Vital Sign Comment: Latest Logan Fall Score: 35 Fall Risk: Medium Risk Safety Measures: Call light Within Reach, Bed Alarm , Side Rails Side Rails x2, Bed position Low and Locked. Fall Precautions: Door Sign Patient Fall Education Report given to KAREN Blood.
[2020-04-28 06:50] LABS: ALANINE AMINOTRANSFERASE 50 U/L (12-78); ALBUMIN 2.7 G/DL (3.4-5.0); ALBUMIN/GLOBULIN RATIO 0.6 (1.0-2.7); ALKALINE PHOSPHATASE 240 U/L (46-116); ANION GAP 8 mmol/L (5-15); ASPARTATE AMINO TRANSFERASE 95 U/L (15-37); BILIRUBIN,TOTAL 0.9 MG/DL (0.2-1.0); BLOOD UREA NITROGEN 13 mg/dL (7-18); CARBON DIOXIDE 23 MMOL/L (21-32); CHLORIDE 105 MMOL/L (98-107); CREATININE 0.9 MG/DL (0.55-1.30); PHOSPHORUS 3.1 MG/DL (2.5-4.9); POTASSIUM 4.5 MMOL/L (3.5-5.1); SODIUM 136 MMOL/L (136-145)
[2020-04-28 08:00] VITALS: BP 128/72
[2020-04-28] MEDS: HYDROcodone/Acetamin 5/325 tab ORAL PRN (09:19)
[2020-04-28] MEDS ORDERED: Morphine Sulfate 2mg/ml Inj(IV/IM USE ONLY) IVP PRN (09:45)
--- NOTE | 2020-04-28 09:53 | NUR ---
NURSE NOTES: RECIEVED CALL FROM MD W/ NEW ORDER MADE AND CARRIED OUT.STILL W/ PAIN ,WILL CONTINUE TO MONITOR.PT. IS UP AND ABOUT NO S/S OF DIZZINESS NOTED.PLAN OF CARE DISCUSSED ,VERBALIZES UNDERSTANDING.
[2020-04-28] MEDS ORDERED: guaiFENesin /DM 10ml syrup ORAL PRN (10:15)
--- NOTE | 2020-04-28 10:45 | History and Physical Report ---
DATE OF ADMISSION: 04/27/2020 CHIEF COMPLAINT: Abnormal blood work. HISTORY OF PRESENT ILLNESS: This is a 65-year-old very unfortunate gentleman with past medical history significant for advanced metastatic colon cancer, unresectable, status post colonic diversion with colostomy bag, who presented to the emergency department complaining about severe fatigue, muscle aches, weakness. The patient noted that his status is progressively worsening and becomes very anemic, and noted some black stool in the colostomy bag. No chest pain. No shortness of breath. No nausea or vomiting. No known aggressive or relieving factor was noted. Shortly after initial evaluation in the emergency department, the patient was noted to have hemoglobin of 6.8, and was admitted to the hospital for blood transfusion. PAST MEDICAL HISTORY/PAST SURGICAL HISTORY: As above. History of advanced metastatic colon cancer, unresectable. Denies any history of radiation therapy, history of chemotherapy. The patient was diagnosed in February 2018, status post of diverting colostomy and right chest wall placement. MEDICATIONS AT HOME: Please refer to medication reconciliation. ALLERGIES: No known drug allergies. SOCIAL HISTORY: Denies any smoking, alcohol, or drugs. He is an ex-smoker. FAMILY HISTORY: Mother with history of colon cancer. REVIEW OF SYSTEMS: Mostly as above. Denies any dysuria, frequency, or hematuria. Complained about fatigue and weakness. Denies any hemoptysis or hematochezia. Denies any bright red blood in the colostomy bag; however, complained about dark stool. Denies any loss of consciousness. Denies any fall or head trauma. PHYSICAL EXAMINATION: VITAL SIGNS: On admission, temperature is 98.1, pulse of 99, respirations 18, and blood pressure 137/86. GENERAL: The patient is awake, responsive, in no acute distress. HEAD AND NECK: Pupils equal and reactive to light. Extraocular movements are intact. Neck was supple. No JVD. LUNGS: Good air entry. No wheezing or rales. HEART: S1, S2. Regular rhythm. No murmurs or gallops. CHEST WALL: He has a on the right side of chest wall. No sign of infection. ABDOMEN: Soft, nondistended, nontender. Colostomy bag is intact in the left upper quadrant. No rebound tenderness. No fluid shift. EXTREMITIES: No cyanosis, clubbing, or edema. NEUROLOGIC: Cranial nerves II through XII are grossly intact. Motor is 5/5 in all extremities. Gait is intact. RECTAL: Refused and deferred. GENITOURINARY: Refused and deferred. PSYCHIATRIC: Mood and affect is intact. LABORATORY AND DIAGNOSTIC DATA: Laboratory on admission from the emergency department, WBC of 9.9, hemoglobin of 6.8, hematocrit 23, platelet is 319,000. Sodium 138, potassium 4.0, chloride 105, bicarb 22, BUN 72, creatinine 1.3, GFR greater than 60. Total bilirubin of 0.5, AST of 102, ALT of 47, alkaline phosphatase was 254, total protein is 7.5, albumin is 2.8. Rapid COVID-19 test is negative. The patient had a CT of the chest, abdomen, pelvis, which noted extensive and diffuse metastatic disease in the lungs, worsening September 07, 2019. The patient has atrophic right kidney, metastatic disease to liver and spleen. Gallbladder is unremarkable. Appendix is unremarkable. Moderate quantity of stool throughout the colon. Parapelvic left renal cyst, which required no followup. Mild enlargement of the pancreatic length. ASSESSMENT: 1. Severe anemia, most likely secondary to the colon cancer. 2. Advanced metastatic colon cancer, unresectable, status post diverting colostomy placement, presently on the chemotherapy. No radiation therapy. PLAN: Admit the patient to medical floor. We will resume home medication. Type and cross, transfuse three units of packed RBCs. We consider to monitor laboratories. If the patient's status improved, consider to discharge home to follow up with the scrape gatherer/oncologist as outpatient. Code status is full code. DVT prophylaxis, SCD. Michael Borges M.D. DR: Cece JOB#: [id number] CC:
--- NOTE | 2020-04-28 11:04 | General Progress Note ---
Subjective ROS Limited/Unobtainable: No Allergies: Coded Allergies: No Known Allergies (Unverified , 03/02/18) Objective Last 24 Hour Vital Signs Date Time Temp Pulse Resp B/P (MAP) Pulse Ox O2 Delivery O2 Flow Rate FiO2 04/28/20 09:18 89 128/72 04/28/20 08:00 97.4 89 18 128/72 (90) 98 04/28/20 04:00 97.9 80 16 128/75 (92) 98 04/28/20 00:00 98.0 82 18 130/74 (92) 99 04/27/20 22:58 Room Air 04/27/20 22:15 97.5 76 18 146/79 100 Room Air 04/27/20 22:15 98.0 81 18 145/83 100 Room Air 04/27/20 20:50 97.7 78 14 04/27/20 20:35 97.7 78 16 133/78 100 Room Air 04/27/20 20:35 97.7 82 17 04/27/20 20:20 97.1 79 16 145/78 100 Room Air 04/27/20 20:20 97.1 79 16 04/27/20 20:15 99.6 76 18 158/91 (113) 99 04/27/20 20:12 98.0 04/27/20 18:48 97.7 04/27/20 17:15 98.1 99 18 137/86 95 Room Air 04/27/20 17:13 98.1 99 18 137/86 (103) 95 Room Air Intake and Output 04/27/20 04/28/20 19:00 07:00 Intake Total 760 ml Output Total 600 ml Balance 160 ml Intake Oral 760 ml Output Urine Total 600 ml # Voids 2 # Bowel Movements 2 Laboratory Tests 04/27/20 18:00: White Blood Count 9.9, Red Blood Count 3.42L, Hemoglobin 6.8*L, Hematocrit 23.8L , Mean Corpuscular Volume 70L, Mean Corpuscular Hemoglobin 19.9L, Mean Corpuscular Hemoglobin Concent 28.6L, Red Cell Distribution Width 21.3H, Platelet Count 319, Mean Platelet Volume 7.7, Neutrophils (%) (Auto) , Lymphocytes (%) (Auto) , Monocytes (%) (Auto) , Eosinophils (%) (Auto) , Basophils (%) (Auto) , Differential Total Cells Counted 100, Neutrophils % (Manual) 78H, Lymphocytes % (Manual) 10L, Monocytes % (Manual) 5, Eosinophils % (Manual) 7H, Basophils % (Manual) 0, Band Neutrophils 0, Platelet Estimate Adequate, Platelet Morphology , Giant Platelets Occasional, Polychromasia 2+, Hypochromasia 3+, Anisocytosis 3+, Microcytosis 3+, Sodium Level 138, Potassium Level 4.0, Chloride Level 105, Carbon Dioxide Level 23, Anion Gap 11, Blood Urea Nitrogen 17, Creatinine 1.3, Estimat Glomerular Filtration Rate > 60, Glucose Level 93, Calcium Level 9.2, Total Bilirubin 0.5, Aspartate Amino Transf (AST/SGOT) 102H, Alanine Aminotransferase (ALT/SGPT) 47, Alkaline Phosphatase 254H, Total Protein 7.5, Albumin 2.8L, Globulin 4.7, Albumin/Globulin Ratio 0.6L 04/28/20 06:05: White Blood Count 10.9H, Red Blood Count 4.15L, Hemoglobin 9.1#L, Hematocrit 30.1L, Mean Corpuscular Volume 73L, Mean Corpuscular Hemoglobin 21.9L, Mean Corpuscular Hemoglobin Concent 30.1L, Red Cell Distribution Width 21.3H, Platelet Count 290, Mean Platelet Volume 6.8, Neutrophils (%) (Auto) 70.8, Lymphocytes (%) (Auto) 12.2L, Monocytes (%) (Auto) 10.9H, Eosinophils (%) (Auto) 5.2H, Basophils (%) (Auto) 1.0, Sodium Level 136, Potassium Level 4.5, Chloride Level 105, Carbon Dioxide Level 23, Anion Gap 8, Blood Urea Nitrogen 13, Creatinine 0.9, Estimat Glomerular Filtration Rate > 60, Glucose Level 89, Calcium Level 9.0, Total Bilirubin 0.9, Aspartate Amino Transf (AST/SGOT) 95H, Alanine Aminotransferase (ALT/SGPT) 50, Alkaline Phosphatase 240H, Total Protein 7.3, Albumin 2.7L, Globulin 4.6, Albumin/Globulin Ratio 0.6L, Phosphorus Level 3.1, Magnesium Level 2.1 Height (Feet): 6 Height (Inches): 1.00 Weight (Pounds): 190 General Appearance: no apparent distress EENT: normal ENT inspection Neck: supple Cardiovascular: normal rate Respiratory/Chest: decreased breath sounds Abdomen: normal bowel sounds, non tender, soft Extremities: non-tender Assessment/Plan Assessment/Plan: metastatic colon CA severe anemia ? UGIB due to NSAID constipation s/p blood transfusion ppi colace and miralax CT reviewed fu stool ob EGD if needed on Friday Hao Singh MD Apr 28, 2020 11:04
--- NOTE | 2020-04-28 11:45 | NUR ---
CASE MANAGEMENT:INITIAL REVIEW 65 YR OLD MALE PRESENTED TO ED FROM HOME PER PCP ADVICE CC;ABNORMAL LABS SI;SYMPTOMATIC ANEMIA 99.6 79 18 158/91 95% ON RA H/H- 6.8/23.8 AST+ 102 ALP+ 254 ALB- 2.8 COVID RAPID ~ NEGATIVE ABD/PELVIS CT ~ Extensive metastatic disease to the lung, the liver, and the spleen. Atrophic right kidney. Mild enlargement of the prostate gland. IS;IVF NS BOLUS MORPHINE SULFATE IV ZOFRAN IV PRBC TRANSFUSED X2 UNITS ADMITTED TO MED SURG MED SURG STATUS DCP;PENDING HOSPITAL STAY
[2020-04-28 12:00] VITALS: BP 125/81
--- NOTE | 2020-04-28 12:30 | NUR ---
NURSE NOTES:. Received report from Keeley RN. Patient is awake and oriented, in no distress, colostomy bag appliance in place LLQ, no leaking. Patient update on plan of care. Bed low and locked, call light within reach.
--- NOTE | 2020-04-28 12:30 | NUR ---
HAND-OFF: Report given to GREGORY JONES.
[2020-04-28 16:00] VITALS: BP 130/76
--- NOTE | 2020-04-28 16:02 | Internal Med Progress Note ---
Subjective Physician Name Michael Borges Attending Physician Michael Borges MD Current Medications Medications (Trade) Dose Ordered Sig/Alvin Route PRN Reason Start Time Stop Time Status Last Admin Dose Admin Acetaminophen (Tylenol) 650 mg Q6H PRN ORAL mild Pain(1-3)/MIGUEL/Temp>100.4 04/27/20 22:30 05/27/20 22:29 Acetaminophen/ Hydrocodone Bitart ([place] 5/325) 1 tab Q6H PRN ORAL Severe Pain (7-10) 04/27/20 22:30 05/04/20 22:29 04/28/20 09:19 Amlodipine Besylate (Norvasc) 5 mg DAILY ORAL 04/28/20 09:00 05/28/20 08:59 04/28/20 09:18 Docusate Sodium (Colace) 100 mg TWICE A DAY ORAL 04/28/20 18:00 05/28/20 17:59 Iohexol (OMNIPAQUE-300 100ml) 100 ml NOW PRN INJ Radiology Procedure 04/27/20 18:00 04/29/20 17:59 Iohexol (OMNIPAQUE-300 100ml) 100 ml NOW PRN INJ Radiology Procedure 04/27/20 19:45 04/29/20 19:44 Morphine Sulfate (Morphine Sulfate) 2 mg Q4H PRN IVP Severe Pain (Pain Scale 7-10) 04/28/20 09:45 05/05/20 09:44 Pantoprazole (Protonix) 40 mg EVERY 12 HOURS ORAL 04/28/20 21:00 05/28/20 20:59 Polyethylene Glycol (Miralax) 17 gm BEDTIME ORAL 04/28/20 21:00 05/28/20 20:59 Temazepam (Restoril) 15 mg HSPRN PRN ORAL Insomnia 04/27/20 22:30 05/04/20 22:29 04/27/20 23:58 Tramadol HCl (Ultram) 50 mg Q6H PRN ORAL Moderate pain (4-6) 04/27/20 22:30 05/04/20 22:29 04/28/20 03:02 Allergies: Coded Allergies: No Known Allergies (Unverified , 03/02/18) Subjective awake, alert, responsive, denies any chest pain or shortness of breath. Hemoglobin: 9.1 Objective Last Vital Signs Date Time Temp Pulse Resp B/P (MAP) Pulse Ox O2 Delivery O2 Flow Rate FiO2 04/28/20 12:00 97.8 73 18 125/81 (96) 98 04/27/20 22:58 Room Air Laboratory Tests Test 04/27/20 18:00 04/28/20 06:05 04/28/20 13:09 White Blood Count 9.9 K/UL (4.8-10.8) 10.9 K/UL (4.8-10.8) H Red Blood Count 3.42 M/UL (4.70-6.10) L 4.15 M/UL (4.70-6.10) L Hemoglobin 6.8 G/DL (14.2-18.0) *L 9.1 G/DL (14.2-18.0) #L Hematocrit 23.8 % (42.0-52.0) L 30.1 % (42.0-52.0) L Mean Corpuscular Volume 70 FL (80-99) L 73 FL (80-99) L Mean Corpuscular Hemoglobin 19.9 PG (27.0-31.0) L 21.9 PG (27.0-31.0) L Mean Corpuscular Hemoglobin Concent 28.6 G/DL (32.0-36.0) L 30.1 G/DL (32.0-36.0) L Red Cell Distribution Width 21.3 % (11.6-14.8) H 21.3 % (11.6-14.8) H Platelet Count 319 K/UL (150-450) 290 K/UL (150-450) Mean Platelet Volume 7.7 FL (6.5-10.1) 6.8 FL (6.5-10.1) Neutrophils (%) (Auto) % (45.0-75.0) 70.8 % (45.0-75.0) Lymphocytes (%) (Auto) % (20.0-45.0) 12.2 % (20.0-45.0) L Monocytes (%) (Auto) % (1.0-10.0) 10.9 % (1.0-10.0) H Eosinophils (%) (Auto) % (0.0-3.0) 5.2 % (0.0-3.0) H Basophils (%) (Auto) % (0.0-2.0) 1.0 % (0.0-2.0) Differential Total Cells Counted 100 Neutrophils % (Manual) 78 % (45-75) H Lymphocytes % (Manual) 10 % (20-45) L Monocytes % (Manual) 5 % (1-10) Eosinophils % (Manual) 7 % (0-3) H Basophils % (Manual) 0 % (0-2) Band Neutrophils 0 % (0-8) Platelet Estimate Adequate Platelet Morphology Giant Platelets Occasional Polychromasia 2+ Hypochromasia 3+ Anisocytosis 3+ Microcytosis 3+ Sodium Level 138 MMOL/L (136-145) 136 MMOL/L (136-145) Potassium Level 4.0 MMOL/L (3.5-5.1) 4.5 MMOL/L (3.5-5.1) Chloride Level 105 MMOL/L (98-107) 105 MMOL/L (98-107) Carbon Dioxide Level 23 MMOL/L (21-32) 23 MMOL/L (21-32) Anion Gap 11 mmol/L (5-15) 8 mmol/L (5-15) Blood Urea Nitrogen 17 mg/dL (7-18) 13 mg/dL (7-18) Creatinine 1.3 MG/DL (0.55-1.30) 0.9 MG/DL (0.55-1.30) Estimat Glomerular Filtration Rate > 60 mL/min (>60) > 60 mL/min (>60) Glucose Level 93 MG/DL (74-106) 89 MG/DL (74-106) Calcium Level 9.2 MG/DL (8.5-10.1) 9.0 MG/DL (8.5-10.1) Total Bilirubin 0.5 MG/DL (0.2-1.0) 0.9 MG/DL (0.2-1.0) Aspartate Amino Transf (AST/SGOT) 102 U/L (15-37) H 95 U/L (15-37) H Alanine Aminotransferase (ALT/SGPT) 47 U/L (12-78) 50 U/L (12-78) Alkaline Phosphatase 254 U/L (46-116) H 240 U/L (46-116) H Total Protein 7.5 G/DL (6.4-8.2) 7.3 G/DL (6.4-8.2) Albumin 2.8 G/DL (3.4-5.0) L 2.7 G/DL (3.4-5.0) L Globulin 4.7 g/dL 4.6 g/dL Albumin/Globulin Ratio 0.6 (1.0-2.7) L 0.6 (1.0-2.7) L Phosphorus Level 3.1 MG/DL (2.5-4.9) Magnesium Level 2.1 MG/DL (1.8-2.4) Stool Occult Blood Positive (NEGATIVE) Microbiology Date/Time Source Procedure Growth Status 04/27/20 18:15 Nasopharynx SARS-CoV-2 RdRp Gene Assay - Final Complete Intake and Output 04/27/20 04/28/20 19:00 07:00 Intake Total 760 ml Output Total 600 ml Balance 160 ml Intake Oral 760 ml Output Urine Total 600 ml # Voids 2 # Bowel Movements 2 Objective GENERAL: The patient is awake, responsive, in no acute distress. HEAD AND NECK: Pupils equal and reactive to light. Extraocular movements are intact. Neck was supple. No JVD. LUNGS: Good air entry. No wheezing or rales. HEART: S1, S2. Regular rhythm. No murmurs or gallops. CHEST WALL: [place] @ right side of chest wall. No sign of infection. ABDOMEN: Soft, nondistended, nontender. Colostomy bag is intact in the left upper quadrant. No rebound tenderness. No fluid shift. EXTREMITIES: No cyanosis, clubbing, or edema. NEUROLOGIC: Cranial nerves II through XII are grossly intact. Motor is 5/5 in all extremities. Gait is intact. RECTAL: Refused and deferred. GENITOURINARY: Refused and deferred. PSYCHIATRIC: Mood and affect is intact. Assessment/Plan Assessment/Plan 1. Severe anemia, most likely secondary to the colon cancer. 2. Advanced metastatic colon cancer, unresectable, status post diverting colostomy placement, presently on the chemotherapy. No radiation therapy. Plan: discharge home today. Advised patient follow-up primary care doctor and oncologist within 1 wk. advice patient to avoid NSAIDs including ibuprofen. Monitor laboratory next as outpatient. Consider further workup including EGD/colonoscopy as outpatient. Discharge medication include Protonix twice a day and Carafate 3 times a day. Michael Borges MD Apr 28, 2020 16:02
--- NOTE | 2020-04-28 16:27 | NUR ---
NURSE NOTES: Dr. Borges notified and aware stool OB is positive, per MD ok to discharge patient, prescription provided.
[2020-04-28] MEDS ORDERED: Heplock Flush 100 units/ml 3 ml syr INJ SCH (17:00)
--- NOTE | 2020-04-28 17:12 | Consultation ---
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 Admitted for further care and management. Initially noted to be Covid negative. Abnormal LFTs. CT was significant disease process. Noted to have black evacuation from colostomy. Surgery called to evaluate assist with care. Patient seen, patient evaluate, chart reviewed Allergies: Coded Allergies: No Known Allergies (Unverified , 03/02/18) COVID-19 Screening Contact w/high risk pt: No Recent Travel to affected area: No Experienced COVID-19 symptoms?: No Medication History Scheduled Amlodipine Besylate* (Amlodipine Besylate*), 5 MG ORAL DAILY, (Reported) Dicyclomine Hcl* (Dicyclomine Hcl*), 10 MG PO QID Lidocaine Patch* (Lidoderm Patch*), 1 PATCH TOPIC DAILY Ranitidine Hcl* (Zantac), 150 MG ORAL TWICE A DAY Scheduled PRN Acetaminophen (Tylenol), 650 MG ORAL Q6H PRN for Prn Pain/Headache/Temp > 101 Hydrocodone Bit/Acetaminophen 10-325* ([place] 10-325*), 1 TAB ORAL Q6H PRN for For Pain Ibuprofen* (Motrin*), 600 MG ORAL Q8H PRN for FOR PAIN Ibuprofen* (Motrin*), 600 MG ORAL Q6H PRN for FOR PAIN Ondansetron Odt* (Zofran Odt*), 4 MG BC EVERY 6 HOURS PRN for Nausea & Vomiting Tramadol Hcl* (Ultram*), 50 MG ORAL Q6H PRN for For Pain Miscellaneous Medications Unable to Obtain Medications (Unable To Obtain Meds), (Reported) Patient History History Provided By: Patient, Medical Record, PMD Healthcare decision maker Resuscitation status Advanced Directive on File Past Medical/Surgical History Past Medical/Surgical History: (1) Gastroenteritis (2) Shoulder pain (3) Symptomatic anemia (4) Anemia Review of Systems Review of Symptoms General ROS: no weight loss or fever Psychological ROS: no depression or mood changes, no memory loss Ophthalmic ROS: no visual changes or eye irritation ENT ROS: no nasal congestion, hearing loss, dizziness Allergy and Immunology ROS: no allergic symptoms or urticaria Hematological and Lymphatic ROS: no swollen glands, unusual bleeding or bruising Endocrine ROS: no polyuria, polydipsia, weight changes, temperature intolerance Respiratory ROS: no cough, shortness of breath, or wheezing Cardiovascular ROS: no chest pain or dyspnea on exertion Gastrointestinal ROS: denies abdominal pain, bright red blood in stool. Musculoskeletal ROS: no myalgias or arthralgias Neurological ROS: no TIA or stroke symptoms Dermatological ROS: no new or changing skin lesions, rashes or pruritis Physical Exam Physical Exam General appearance: alert, cooperative, no distress, appears stated age Head: Normocephalic, without obvious abnormality, atraumatic Eyes: conjunctivae/corneas clear. PERRL, EOM's intact. Fundi benign Throat: Lips, mucosa, and tongue normal. Teeth and gums normal Neck: supple, symmetrical, trachea midline, no adenopathy, thyroid: not enlarged, symmetric, no tenderness/mass/nodules, no carotid bruit and no JVD Lungs: clear to auscultation bilaterally Heart: regular rate and rhythm, S1, S2 normal, no murmur, click, rub or gallop Abdomen: soft, non-tender. Bowel sounds normal. No masses, no organomegaly ostomy stable Extremities: extremities normal, atraumatic, no cyanosis or edema Pulses: 2+ and symmetric Skin: Skin color, texture, turgor normal. No rashes or lesions Neurologic: Grossly normal Last 24 Hour Vital Signs Date Time Temp Pulse Resp B/P (MAP) Pulse Ox O2 Delivery O2 Flow Rate FiO2 04/28/20 12:00 97.8 73 18 125/81 (96) 98 04/28/20 09:49 97.4 04/28/20 09:18 89 128/72 04/28/20 09:00 Room Air 04/28/20 08:00 97.4 89 18 128/72 (90) 98 04/28/20 04:00 97.9 80 16 128/75 (92) 98 04/28/20 00:00 98.0 82 18 130/74 (92) 99 04/27/20 22:58 Room Air 04/27/20 22:15 97.5 76 18 146/79 100 Room Air 04/27/20 22:15 98.0 81 18 145/83 100 Room Air 04/27/20 20:50 97.7 78 14 04/27/20 20:35 97.7 78 16 133/78 100 Room Air 04/27/20 20:35 97.7 82 17 04/27/20 20:20 97.1 79 16 145/78 100 Room Air 04/27/20 20:20 97.1 79 16 04/27/20 20:15 99.6 76 18 158/91 (113) 99 04/27/20 20:12 98.0 04/27/20 18:48 97.7 04/27/20 17:15 98.1 99 18 137/86 95 Room Air 04/27/20 17:13 98.1 99 18 137/86 (103) 95 Room Air Intake and Output 0 04/27/20 04/28/20 19:00 07:00 Intake Total 760 ml Output Total 600 ml Balance 160 ml Intake Oral 760 ml Output Urine Total 600 ml # Voids 2 # Bowel Movements 2 Laboratory Tests Test 04/27/20 18:00 04/28/20 06:05 04/28/20 13:09 White Blood Count 9.9 K/UL (4.8-10.8) 10.9 K/UL (4.8-10.8) H Red Blood Count 3.42 M/UL (4.70-6.10) L 4.15 M/UL (4.70-6.10) L Hemoglobin 6.8 G/DL (14.2-18.0) *L 9.1 G/DL (14.2-18.0) #L Hematocrit 23.8 % (42.0-52.0) L 30.1 % (42.0-52.0) L Mean Corpuscular Volume 70 FL (80-99) L 73 FL (80-99) L Mean Corpuscular Hemoglobin 19.9 PG (27.0-31.0) L 21.9 PG (27.0-31.0) L Mean Corpuscular Hemoglobin Concent 28.6 G/DL (32.0-36.0) L 30.1 G/DL (32.0-36.0) L Red Cell Distribution Width 21.3 % (11.6-14.8) H 21.3 % (11.6-14.8) H Platelet Count 319 K/UL (150-450) 290 K/UL (150-450) Mean Platelet Volume 7.7 FL (6.5-10.1) 6.8 FL (6.5-10.1) Neutrophils (%) (Auto) % (45.0-75.0) 70.8 % (45.0-75.0) Lymphocytes (%) (Auto) % (20.0-45.0) 12.2 % (20.0-45.0) L Monocytes (%) (Auto) % (1.0-10.0) 10.9 % (1.0-10.0) H Eosinophils (%) (Auto) % (0.0-3.0) 5.2 % (0.0-3.0) H Basophils (%) (Auto) % (0.0-2.0) 1.0 % (0.0-2.0) Differential Total Cells Counted 100 Neutrophils % (Manual) 78 % (45-75) H Lymphocytes % (Manual) 10 % (20-45) L Monocytes % (Manual) 5 % (1-10) Eosinophils % (Manual) 7 % (0-3) H Basophils % (Manual) 0 % (0-2) Band Neutrophils 0 % (0-8) Platelet Estimate Adequate Platelet Morphology Giant Platelets Occasional Polychromasia 2+ Hypochromasia 3+ Anisocytosis 3+ Microcytosis 3+ Sodium Level 138 MMOL/L (136-145) 136 MMOL/L (136-145) Potassium Level 4.0 MMOL/L (3.5-5.1) 4.5 MMOL/L (3.5-5.1) Chloride Level 105 MMOL/L (98-107) 105 MMOL/L (98-107) Carbon Dioxide Level 23 MMOL/L (21-32) 23 MMOL/L (21-32) Anion Gap 11 mmol/L (5-15) 8 mmol/L (5-15) Blood Urea Nitrogen 17 mg/dL (7-18) 13 mg/dL (7-18) Creatinine 1.3 MG/DL (0.55-1.30) 0.9 MG/DL (0.55-1.30) Estimat Glomerular Filtration Rate > 60 mL/min (>60) > 60 mL/min (>60) Glucose Level 93 MG/DL (74-106) 89 MG/DL (74-106) Calcium Level 9.2 MG/DL (8.5-10.1) 9.0 MG/DL (8.5-10.1) Total Bilirubin 0.5 MG/DL (0.2-1.0) 0.9 MG/DL (0.2-1.0) Aspartate Amino Transf (AST/SGOT) 102 U/L (15-37) H 95 U/L (15-37) H Alanine Aminotransferase (ALT/SGPT) 47 U/L (12-78) 50 U/L (12-78) Alkaline Phosphatase 254 U/L (46-116) H 240 U/L (46-116) H Total Protein 7.5 G/DL (6.4-8.2) 7.3 G/DL (6.4-8.2) Albumin 2.8 G/DL (3.4-5.0) L 2.7 G/DL (3.4-5.0) L Globulin 4.7 g/dL 4.6 g/dL Albumin/Globulin Ratio 0.6 (1.0-2.7) L 0.6 (1.0-2.7) L Phosphorus Level 3.1 MG/DL (2.5-4.9) Magnesium Level 2.1 MG/DL (1.8-2.4) Stool Occult Blood Positive (NEGATIVE) Microbiology Date/Time Source Procedure Growth Status 04/27/20 18:15 Nasopharynx SARS-CoV-2 RdRp Gene Assay - Final Complete Height (Feet): 6 Height (Inches): 1.00 Weight (Pounds): 190 Medications Current Medications Medications (Trade) Dose Ordered Sig/Alvin Route PRN Reason Start Time Stop Time Status Last Admin Dose Admin Acetaminophen (Tylenol) 650 mg Q6H PRN ORAL mild Pain(1-3)/MIGUEL/Temp>100.4 04/27/20 22:30 05/27/20 22:29 Acetaminophen/ Hydrocodone Bitart ([place] 5/325) 1 tab Q6H PRN ORAL Severe Pain (7-10) 04/27/20 22:30 05/04/20 22:29 04/28/20 09:19 Amlodipine Besylate (Norvasc) 5 mg DAILY ORAL 04/28/20 09:00 05/28/20 08:59 04/28/20 09:18 Docusate Sodium (Colace) 100 mg TWICE A DAY ORAL 04/28/20 18:00 05/28/20 17:59 Heparin Sodium (Beef Lung) (Hep-Lock) 500 unit ONCE INJ 04/28/20 17:00 04/28/20 19:00 Iohexol (OMNIPAQUE-300 100ml) 100 ml NOW PRN INJ Radiology Procedure 04/27/20 18:00 04/29/20 17:59 Iohexol (OMNIPAQUE-300 100ml) 100 ml NOW PRN INJ Radiology Procedure 04/27/20 19:45 04/29/20 19:44 Morphine Sulfate (Morphine Sulfate) 2 mg Q4H PRN IVP Severe Pain (Pain Scale 7-10) 04/28/20 09:45 05/05/20 09:44 Pantoprazole (Protonix) 40 mg EVERY 12 HOURS ORAL 04/28/20 21:00 05/28/20 20:59 Polyethylene Glycol (Miralax) 17 gm BEDTIME ORAL 04/28/20 21:00 05/28/20 20:59 Temazepam (Restoril) 15 mg HSPRN PRN ORAL Insomnia 04/27/20 22:30 05/04/20 22:29 04/27/20 23:58 Tramadol HCl (Ultram) 50 mg Q6H PRN ORAL Moderate pain (4-6) 04/27/20 22:30 05/04/20 22:29 04/28/20 03:02 Assessment/Plan Problem List: (1) Symptomatic anemia ICD Codes: D64.9 - Anemia, unspecified SNOMED: 204029086 (2) Gastroenteritis ICD Codes: K52.9 - Noninfective gastroenteritis and colitis, unspecified SNOMED: 14620454 (3) Shoulder pain ICD Codes: M25.519 - Pain in unspecified shoulder SNOMED: 23710375 (4) Anemia (5) Abnormal LFTs Assessment & Plan: metastatic disease likely cause liver noted no acute surgery indicated will monitor Lung bases: Mass lesions are noted at the lung bases largest of which is at the right lung base measuring 3 x 4.2 cm compatible with metastatic disease. Minimal subsegmental atelectasis or scarring posteriorly at the lung bases. Heart: Heart is normal in size. Mediastinum: Small hiatal hernia. ABDOMEN: Liver: Diffuse fatty infiltration of the liver. Extensive metastatic disease to the liver and the spleen. Gallbladder and bile ducts: See below. Pancreas: See below. Spleen: See above. Adrenals: The adrenal glands, the head, body, tail of the pancreas and the gallbladder are unremarkable. Kidneys and ureters: Atrophic are right kidney. Compensatory hypertrophy of the left kidney. Parapelvic left renal cysts. No follow- up is advised. No hydronephrosis. Stomach and bowel: Midline are right upper quadrant ostomy site is noted. Minimal ingested material in the stomach. Moderate quantity of stool throughout the colon. No obstruction. No mucosal thickening. PELVIS: Appendix: Appendix is seen on coronal image 21 and is unremarkable. Bladder: The bladder is unremarkable. Reproductive: The prostate gland measures 5.3 x 6 cm. ABDOMEN and PELVIS: Intraperitoneal space: Unremarkable. No free air. No significant fluid collection. Bones/joints: Mild degenerative disc disease of the visualized spine. Moderate osteoarthritic changes about the sacroiliac joints. Minimal grade 1 anterolisthesis of L4 upon L5 vertebral body. No spondylolysis. No acute fracture. No dislocation. Soft tissues: Ischiorectal fat is clean. Vasculature: Atherosclerotic disease of the abdominal aorta without change in caliber. Flow is demonstrated within the celiac, SMA, the renal arteries, and MARILU. No abdominal aortic aneurysm. Lymph nodes: No retroperitoneal lymphadenopathy. No pelvic or inguinal lymphadenopathy. IMPRESSION: 1. Extensive metastatic disease to the lung, the liver, and the spleen. 2. Atrophic right kidney. 3. The gallbladder is unremarkable. 4. Appendix is unremarkable. 5. Moderate quantity of stool throughout the colon. 6. Parapelvic left renal cysts which requires no follow-up. 7. Mild enlargement of the prostate gland. 8. PET imaging may provide additional information and should be considered for follow-up. ICD Codes: R94.5 - Abnormal results of liver function studies SNOMED: 655152836 (6) Colostomy dysfunction Assessment & Plan: black output noted unrelated to ostomy ostomy pink and viable anemia likely gi bleed enteritis gi eval okay for diet ostomy care ICD Codes: K94.03 - Colostomy malfunction SNOMED: 53582242 Jesse Dent Apr 28, 2020 17:11
--- NOTE | 2020-04-28 17:45 | NUR ---
NURSE NOTES: Patient discharged per order from Dr. Borges, instructed to follow up with oncologist as directed by Dr. Borges. Patient provided with discharge education and verbalized understanding, patient provided with Rx. Port a cath heparin locked and de-accessed. All belongings sent with patient. Patient escorted off unit by RN.
[2020-04-28] MEDS ORDERED: Ipratropium Bromide Inhaler INH SCH (18:00)
[2020-04-28] MEDS ORDERED: Docusate 100mg cap ORAL SCH (18:00)
[2020-04-28] MEDS ORDERED: Miralax 17gm pkt ORAL SCH (21:00)
--- NOTE | 2020-04-30 12:50 | Discharge Summary ---
Discharge Summary Discharge Summary _ Date of admission: 04/27/2020 Date of discharge: 04/28/[address] Borges History of Present Illness and Brief Hospital Course Mr. Carey is a 65-year-old male with history of anemia, colon cancer and colostomy, who presented to the ED for fatigue x2 weeks. Patient reported noticing some black stools in his colostomy bag. He was taken to CT of chest given his history of colon cancer, for evaluation of lung mass. CT was remarkable for extensive and diffuse metastatic disease to the lungs which has worsened in progress since the previous study on 09/07/2019. CT of abdomen/pelvis was also remarkable for extensive metastatic disease to the lung, liver, and spleen. Other findings include stools, atrophic right kidney, and mild enlargement of the prostate gland. Patient was noted to have hemoglobin of 6.8, and was admitted to the hospital for blood transfusion. After 2 units of transfusion, his hemoglobin level improved to 9.1. His severe anemia was most likely secondary to the colon cancer. The advanced metastatic colon cancer was unresectable, and patient was status post diverting colostomy placement, presently on chemotherapy. He was not on radiation therapy. 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 Consultants: Surgery Dr. Dent Gastroenterology Dr. Singh Discharge Condition Improved and stable Final diagnoses Symptomatic anemia Gastroenteritis History of shoulder pain Abnormal LFTs Colostomy dysfunction Advanced metastatic colon cancer, s/p colostomy, on chemotherapy Constipation I have been assigned to dictate discharge summary for this account. I was not involved in the patient's management Percy Byrnes Apr 30, 2020 12:50
== END 2020-04-28 17:45 | disposition home or self-care (01) | DRG 240 ==
LOC: EMR 17:45 → 3E 19:33 → EDBEDREQ 21:08
PROC: 30233N1 Transfusion of Nonautologous Red Blood Cells into Peripheral Vein, Percutaneous Approach (ICD-10-PCS; principal; 2020-04-27)
DX: C18.9 Malignant neoplasm of colon, unspecified (principal); C78.7 Secondary malignant neoplasm of liver and intrahepatic bile duct; D63.0 Anemia in neoplastic disease; K52.9 Noninfective gastroenteritis and colitis, unspecified; R94.5 Abnormal results of liver function studies; Z93.3 Colostomy status; Z79.899 Other long term (current) drug therapy; K59.00 Constipation, unspecified; C78.00 Secondary malignant neoplasm of unspecified lung; C78.89 Secondary malignant neoplasm of other digestive organs; Z80.0 Family history of malignant neoplasm of digestive organs
CPT/HCPCS: 36415; 71260; 74177; 80053; 82270; 83735; 84100; 85007; 85025; 86850; 86900; 86901; 86920; 87081; 96361; 96374; 96375; 96376; 99291; J2405; J7030; U0002

== ENCOUNTER 2020-05-01 15:05 | Emergency (ER) | payer MEDICAID ==
[~2020-05-01] VITALS: Ht 185.4 cm; Wt 86.2 kg
[~2020-05-01 15:05] MED LIST changes: +AMLODIPINE BESYL5 MG ORAL
--- NOTE | 2020-05-01 15:10 | NUR ---
ED Nurse Note: Pt ambulated to ED from home d/t follow up regarding his cbc lab workup regarding post blood transfusion 4 days ago. pt is aox4, calm and cooperative to care, vss, on ra, afebrile on triage. pt ambulatory with steady gait, denies any dizziness nor any discomfort as of now.
--- NOTE | 2020-05-01 15:37 | Emergency Room Report ---
History of Present Illness General Chief Complaint: General Complaint Present Illness HPI 65-year-old male with a history of metastatic cancer here with follow-up labs. Patient was recently discharged 2 days ago for anemia. Patient had received 2 units of blood and hemoglobin went from 6.8-9.5. Patient is here because "I just want to make sure that my hemoglobin is okay." This time denies any fevers, chills, chest pain, palpitation, shortness of breath, back pain, abdominal pain, nausea, vomiting, diarrhea, dysuria, black stools, red stools. 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 COVID-19 Screening: Negative COVID-19 COVID-19 Testing Source: [facility] Nursing Documentation-PMH Hx Cardiac Problems: Yes - anemia Hx Hypertension: Yes Hx Cancer: Yes - Colon CA diagnosed Feb 2018 with mets to liver & spleen Hx Gastrointestinal Problems: No Hx Neurological Problems: No Review of Systems All Other Systems: negative except mentioned in HPI Physical Exam Vital Signs Date Time Temp Pulse Resp B/P (MAP) Pulse Ox O2 Delivery O2 Flow Rate FiO2 05/01/20 15:08 98.4 93 18 131/83 (99) 97 Room Air Sp02 EP Interpretation: reviewed, normal General Appearance: no apparent distress, alert, non-toxic Head: normocephalic, atraumatic Eyes: bilateral eye normal inspection, bilateral eye PERRL ENT: hearing grossly normal, normal pharynx, no angioedema, normal voice Neck: full range of motion, supple/symm/no masses Respiratory: chest non-tender, lungs clear, normal breath sounds, speaking full sentences Cardiovascular #1: regular rate, rhythm, no edema Cardiovascular #2: 2+ carotid (R), 2+ carotid (L), 2+ radial (R), 2+ radial (L), 2+ dorsalis pedis (R), 2+ dorsalis pedis (L) Gastrointestinal: normal bowel sounds, non tender, soft, non-distended, no guarding, no rebound Rectal: deferred Genitourinary: normal inspection, no CVA tenderness Musculoskeletal: back normal, normal range of motion, gait/station normal, non- tender Neurologic: alert, motor strength/tone normal, oriented x3, sensory intact, responsive, speech normal Psychiatric: judgement/insight normal, memory normal, mood/affect normal, no suicidal/homicidal ideation Lymphatic: no adenopathy Medical Decision Making Diagnostic Impression: Primary Impression: Anemia Additional Impression: Metastatic cancer ER Course Laboratory Tests Test 05/01/20 15:35 White Blood Count 11.7 K/UL (4.8-10.8) H Red Blood Count 4.23 M/UL (4.70-6.10) L Hemoglobin 9.1 G/DL (14.2-18.0) L Hematocrit 31.2 % (42.0-52.0) L Mean Corpuscular Volume 74 FL (80-99) L Mean Corpuscular Hemoglobin 21.6 PG (27.0-31.0) L Mean Corpuscular Hemoglobin Concent 29.3 G/DL (32.0-36.0) L Red Cell Distribution Width 22.8 % (11.6-14.8) H Platelet Count 291 K/UL (150-450) Mean Platelet Volume 7.6 FL (6.5-10.1) Neutrophils (%) (Auto) 74.0 % (45.0-75.0) Lymphocytes (%) (Auto) 10.3 % (20.0-45.0) L Monocytes (%) (Auto) 12.6 % (1.0-10.0) H Eosinophils (%) (Auto) 2.1 % (0.0-3.0) Basophils (%) (Auto) 1.0 % (0.0-2.0) Prothrombin Time 11.6 SEC (9.30-11.50) H Prothrombin Time INR 1.1 (0.9-1.1) Activated Partial Thromboplast Time 31 SEC (23-33) Sodium Level Pending Potassium Level Pending Chloride Level Pending Carbon Dioxide Level Pending Blood Urea Nitrogen Pending Creatinine Pending Estimated Glomerular Filtration Rate Pending Glucose Level Pending Calcium Level Pending Total Bilirubin Pending Aspartate Amino Transferase (AST) Pending Alanine Aminotransferase (ALT) Pending Alkaline Phosphatase Pending Total Protein Pending Albumin Pending Globulin Pending With chronic anemia and metastatic cancer here for repeat blood work. Patient was discharged from the hospital 2 days ago after being admitted for anemia requiring 2 units of packed red blood cells. Hemoglobin on discharge was 9.5. Hemoglobin today 9.1. Patient normal vital signs and was in no acute distress in the emergency department. He had microcytic anemia on CBC. Given a prescription for iron supplementation. Told to follow-up with his oncologist. Discharged in stable condition. Last Vital Signs Date Time Temp Pulse Resp B/P (MAP) Pulse Ox O2 Delivery O2 Flow Rate FiO2 05/01/20 15:08 98.4 93 18 131/83 (99) 97 Room Air Scripts Ferrous Sulfate* (FERROUS SULFATE*) 325 Mg Tablet 325 MG ORAL DAILY for SUPPLEMENT, #30 TAB 0 Refills Prov: Adolfo Erazo M.D. 05/01/20 Referrals: [facility],REFERRING (PCP) Adolfo Erazo M.D. May 01, 2020 15:37
[2020-05-01 16:00] VITALS: BP 131/83
[2020-05-01 16:08] LABS: INR 1.1 (0.9-1.1)
[2020-05-01 16:11] LABS: EOSINOPHILS % (AUTO) 2.1 % (0.0-3.0); HEMATOCRIT 31.2 % (42.0-52.0); HEMOGLOBIN 9.1 G/DL (14.2-18.0); LYMPHOCYTES % (AUTO) 10.3 % (20.0-45.0); MEAN CORPUSCULAR VOLUME 74 FL (80-99); MONOCYTES % (AUTO) 12.6 % (1.0-10.0); PLATELET COUNT 291 K/UL (150-450); RED BLOOD COUNT 4.23 M/UL (4.70-6.10); RED CELL DISTRIBUTION WIDTH 22.8 % (11.6-14.8); WHITE BLOOD COUNT 11.7 K/UL (4.8-10.8)
[2020-05-01] MEDS ORDERED: FERROUS SULFAT325 MG ORAL (16:20)
[2020-05-01 16:41] VITALS: BP 128/78
--- NOTE | 2020-05-01 16:41 | NUR ---
ER DISCHARGE NOTE: Patient is cleared to be discharged per ERMD, pt is aox4, on room air, with stable vital signs. pt was given dc and prescription instructions, pt was able to verbalize understanding, pt id band and iv site removed without complications. pt is able to ambulate with steady gait. pt took all belongings.
[2020-05-01 16:49] LABS: ANION GAP 10 mmol/L (5-15); BLOOD UREA NITROGEN 14 mg/dL (7-18); CALCIUM 9.6 MG/DL (8.5-10.1); CARBON DIOXIDE 23 MMOL/L (21-32); CHLORIDE 102 MMOL/L (98-107); POTASSIUM 4.4 MMOL/L (3.5-5.1); SODIUM 135 MMOL/L (136-145)
[2020-05-01 16:53] LABS: ALANINE AMINOTRANSFERASE 62 U/L (12-78); ALBUMIN 2.9 G/DL (3.4-5.0); ALBUMIN/GLOBULIN RATIO 0.5 (1.0-2.7); ALKALINE PHOSPHATASE 306 U/L (46-116); ASPARTATE AMINO TRANSFERASE 116 U/L (15-37); BILIRUBIN,TOTAL 0.7 MG/DL (0.2-1.0)
== END 2020-05-01 16:41 | disposition home or self-care (01) ==
LOC: EMR 15:22
DX: D64.9 Anemia, unspecified (principal); C18.9 Malignant neoplasm of colon, unspecified; C78.7 Secondary malignant neoplasm of liver and intrahepatic bile duct; C78.89 Secondary malignant neoplasm of other digestive organs; I10 Essential (primary) hypertension
CPT/HCPCS: 36415; 80053; 85025; 85610; 85730; 86850; 86900; 86901; Z7502; 99284